=== PATIENT | female | born 1955 | race Caucasian/White ===

== ENCOUNTER → 2019-11-14 17:15 | Outpatient (BNVA) | payer BC, SELFPAY | PROVIDERS: Visit Provider Nurse Practitioner Family | DX: E11.9 Type 2 diabetes mellitus without complications (principal); E55.9 Vitamin D deficiency, unspecified; G47.00 Insomnia, unspecified; K21.9 Gastro-esophageal reflux disease without esophagitis; I10 Essential (primary) hypertension | CPT/HCPCS: 80053; 80061; 82306; 83036; 85025 ==

== ENCOUNTER → 2020-05-28 16:00 | Outpatient (BNVA) | payer BC, SELFPAY | PROVIDERS: Visit Provider Nurse Practitioner Family | DX: I10 Essential (primary) hypertension (principal); E11.9 Type 2 diabetes mellitus without complications; E55.9 Vitamin D deficiency, unspecified; J01.90 Acute sinusitis, unspecified; K21.9 Gastro-esophageal reflux disease without esophagitis | CPT/HCPCS: 80053; 80061; 82043; 82306; 83036; 84443; 85025 ==

== ENCOUNTER → 2020-07-09 14:45 | Outpatient (BNVA) | payer BC, SELFPAY | PROVIDERS: Visit Provider Nurse Practitioner Family | DX: Z20.828 Contact with and (suspected) exposure to other viral communicable diseases (principal); J06.9 Acute upper respiratory infection, unspecified | CPT/HCPCS: 87635 ==

== ENCOUNTER 2020-07-13 13:40 | Inpatient (IN) | payer BC, SELFPAY ==
[2020-07-13] VITALS (10 sets, daily range): BP systolic 127–147; BP diastolic 71–92; PULSE 98–110; RESP 18–30; TEMP 36.8–37.4; O2SAT 92–95; BMI 41.1
--- NOTE | 2020-07-13 13:41 | ECG_ITS ---
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 Measurements Intervals Arley Rate: 97 P: 29 ND: 150 QRS: 28 QRSD: 90 T: 28 QT: 316 QTc: 403 Interpretive Statements SINUS RHYTHM No previous ECG available for comparison Electronically Signed On 07-14-2020 20:29:42 CDT by Antony Rodriguez M.D. [id number]
--- NOTE | 2020-07-13 13:41 | XRR_ITS ---
PROCEDURE INFORMATION: Exam: XR Chest, 1 View Exam date and time: 07/13/2020 1:43 PM Age: 64 years old Clinical indication: Shortness of breath; Additional info: SOB TECHNIQUE: Imaging protocol: XR of the chest Views: 1 view. COMPARISON: No relevant prior studies available. FINDINGS: Lungs: Bilateral patchy ground-glass interstitial lung disease, left lung more involved than right, consistent with active pneumonitis. Minimal discoid atelectasis. Pleural space: Unremarkable. No pleural effusion. No pneumothorax. Heart/Mediastinum: Mild cardiomegaly with arteriosclerosis. Bones/joints: Unremarkable for age. Other findings: Obesity. XR/XR chest 1V portable [id number] IMPRESSION: Findings consistent with bilateral interstitial pneumonitis, left lung more involved than right.
[2020-07-13 14:16] LABS: Hematocrit 42.5 % (37.0-47.0); Hemoglobin 13.7 g/dL (11.5-15.3); Lymphocytes # 0.6 10^3/uL (0.8-4.8); Lymphocytes % 15.4 %; Mean Corpuscular HGB Conc 32.2 g/dL (30.0-36.0); Mean Platelet Volume 11.8 fL (7.4-10.4); Monocytes # 0.3 10^3/uL (0.2-0.9); Monocytes % 8.5 %; Neutrophils # 2.95 10^3/uL (1.8-7.7); Neutrophils % 75.8 %; Nucleated Red Blood Cells % 0 %; Platelet Count 163 10^3/cmm (130-400); Red Blood Count 4.72 10^6/uL (4.1-5.3); Red Cell Distribution Width 12.9 % (12.1-15.1); White Blood Count 3.9 10^3/uL (4.0-10.0)
--- NOTE | 2020-07-13 14:35 | W.ED.SOB ---
HPI - SOB/Dyspnea General: Chief Complaint: Shortness of Breath/Dyspnea Stated Complaint: COVID; SOB Time Seen by Provider: 07/13/20 13:41 Source: patient and EMS Mode of arrival: EMS Limitations: no limitations History of Present Illness: HPI Narrative: Maria G is a 64-year-old female who recently tested positive for COVID. She states that her cough is worse and she got much more short of breath today. EMS states that with exertion her pulse ox would drop into the 60s. When she came in with EMS she was on 6 L and since resting we have been able to turn her down to 3 L. She states that her dyspnea is much worse with exertion. Denies any vomiting or chest pain. Associated symptoms: Reports fever(s); Deny abdominal pain, chest pain, nausea or vomiting Review of Systems Const: Reports: fever(s) Eyes: Denies: blurry vision or eye discomfort ENMT: Denies: throat pain or dental pain Card: Denies: chest pain Resp: Reports: dyspnea and productive cough GI: Denies: abdominal pain, nausea, vomiting or diarrhea : Denies: dysuria Musc: Denies: neck pain or back pain Skin/Breast: Denies: rash Neuro: Denies: headache(s) Psych: Denies: depression Braxton/Lymph: Denies: easy bruising All/Imm: Denies: urticaria PFSH ED PFSH: Medical History DDD (degenerative disc disease) Eating disorder Hypertension Insomnia Type 2 diabetes mellitus Vitamin D deficiency Surgical History History of cholecystectomy Family History Father Diabetes Mother CAD (coronary artery disease) Diabetes Social History Smoking and tobacco status: former smoker Alcohol intake: current Alcohol intake frequency: holidays/special occasions only Lives independently: Yes Household members: spouse Marital status: Physical Exam Const: COMMON NORMALS: no acute distress, patient oriented x3 and healthy appearing HENMT: COMMON NORMALS: normocephalic and atraumatic HEAD & SCALP: normocephalic and atraumatic Eye: COMMON NORMALS: Equal, round and reactive pupils present and EOMs intact bilaterally PUPIL: Yes Equal, round and reactive pupils present Neck/C-Spine: COMMON NORMALS: full ROM and supple Chest: COMMONS NORMALS: normal inspection of the chest and normal palpation of entire chest wall Resp: COMMON NORMALS: normal respiratory effort, No retractions, No use of accessory muscles and clear to auscultation bilaterally AUSCULTATION: clear to auscultation bilaterally and rales Cardio: COMMON NORMALS: regular rate, regular rhythm and No murmurs present (Cardio) RATE: regular rate RHYTHM: regular rhythm GI: COMMON NORMALS: Normal to inspection, nondistended, normoactive bowel sounds present, Soft to palpation, non-tender and no masses PALPATION: Yes Soft to palpation Extremity: COMMON NORMALS: normal to inspection and full ROM Neuro: COMMON NORMALS: patient oriented x3, moves all extremities and no focal motor deficits Psych: COMMON NORMALS: mental status grossly normal, Normal thought process present and cooperative THOUGHT PROCESS: Normal thought process present Skin: COMMON NORMALS: no rashes or lesions noted and no wounds GENERAL SKIN EXAM: no rashes or lesions noted Course Vital Signs: Vital signs: Vital Signs Temperature 98.3 F 07/13/20 14:06 Pulse Rate 102 H 07/13/20 16:00 Respiratory Rate 30 H 07/13/20 16:00 Blood Pressure 127/71 07/13/20 16:00 Pulse Oximetry 94 07/13/20 16:00 MDM - SOB/Dyspnea MDM Narrative: Medical decision making narrative: Patient presents with COVID pneumonia. Patient is requiring 3 to 4 L of oxygen here. Patient has been stable on the oxygen. Patient started on steroids. I spoke to hospitalist and will admit to the viral ICU. Lab Data: Labs: Lab Results 07/13/20 07/13/20 07/13/20 Range/Units 13:50 13:50 13:50 WBC 3.9 L (4.0-10.0) 10^3/ uL RBC 4.72 (4.1-5.3) 10^6/u L Hgb 13.7 (11.5-15.3) g/dL Hct 42.5 (37.0-47.0) % MCV 90.0 (81-99) fL MCH 29.0 (28.0-34.0) pg MCHC 32.2 (30.0-36.0) g/dL RDW 12.9 (12.1-15.1) % Plt Count 163 (130-400) 10^3/c mm MPV 11.8 H (7.4-10.4) fL Neut % (Auto) 75.8 % Lymph % (Auto) 15.4 % [place] % (Auto) 8.5 % Eos % (Auto) 0.0 % Baso % (Auto) 0.0 % Neut # (Auto) 2.95 (1.8-7.7) 10^3/u L Lymph # (Auto) 0.6 L (0.8-4.8) 10^3/u L [place] # (Auto) 0.3 (0.2-0.9) 10^3/u L Eos # (Auto) 0.0 (0.0-0.8) 10^3/u L Baso # (Auto) 0.0 (0.0-0.1) 10^3/u L Nucleated RBC % (a uto) 0 % Nucleated RBCs # 0.0 /100WBC Fibrinogen 588 H (174-498) mg/dL Sodium 131 L (136-145) mmol/L Potassium 4.2 (3.5-5.1) mmol/L Chloride 95 L (98-107) mmol/L Carbon Dioxide 26 (22-29) mmol/L Anion Gap 14.2 (5-19) BUN 8 (8-23) mg/dL Creatinine 0.5 (0.5-0.9) mg/dL GFR Calculation 124.6 (90-130) mL/min Glucose 136 H (65-115) mg/dL POC Glucose (70-110) mg/dL Calculated Osmolal ity 272 L (285-295) mOsm/k g Lactic Acid (0.5-2.2) mmol/L Calcium 8.6 (8.5-10.5) mg/dL Ferritin 460 H (15-150) ng/mL Total Bilirubin 0.4 (0.15-1.2) mg/dL AST 32 (0-32) U/L ALT 29 (0-33) U/L Alkaline Phosphata se 107 H (35-105) IU/L C-Reactive Protein 32.1 H (0.0-4.9) mg/L NT-Pro-B Natriuret Pep 11 (0-125) pg/mL Total Protein 7.0 (6.6-8.7) g/dL Albumin 3.9 (3.5-5.2) g/dL Globulin 3.1 (1.3-4.6) g/dL 07/13/20 07/13/20 Range/Units 13:50 14:54 WBC (4.0-10.0) 10^3/ uL RBC (4.1-5.3) 10^6/u L Hgb (11.5-15.3) g/dL Hct (37.0-47.0) % MCV (81-99) fL MCH (28.0-34.0) pg MCHC (30.0-36.0) g/dL RDW (12.1-15.1) % Plt Count (130-400) 10^3/c mm MPV (7.4-10.4) fL Neut % (Auto) % Lymph % (Auto) % [place] % (Auto) % Eos % (Auto) % Baso % (Auto) % Neut # (Auto) (1.8-7.7) 10^3/u L Lymph # (Auto) (0.8-4.8) 10^3/u L [place] # (Auto) (0.2-0.9) 10^3/u L Eos # (Auto) (0.0-0.8) 10^3/u L Baso # (Auto) (0.0-0.1) 10^3/u L Nucleated RBC % (a uto) % Nucleated RBCs # /100WBC Fibrinogen (174-498) mg/dL Sodium (136-145) mmol/L Potassium (3.5-5.1) mmol/L Chloride (98-107) mmol/L Carbon Dioxide (22-29) mmol/L Anion Gap (5-19) BUN (8-23) mg/dL Creatinine (0.5-0.9) mg/dL GFR Calculation (90-130) mL/min Glucose (65-115) mg/dL POC Glucose 127 (70-110) mg/dL Calculated Osmolal ity (285-295) mOsm/k g Lactic Acid 0.9 (0.5-2.2) mmol/L Calcium (8.5-10.5) mg/dL Ferritin (15-150) ng/mL Total Bilirubin (0.15-1.2) mg/dL AST (0-32) U/L ALT (0-33) U/L Alkaline Phosphata se (35-105) IU/L C-Reactive Protein (0.0-4.9) mg/L NT-Pro-B Natriuret Pep (0-125) pg/mL Total Protein (6.6-8.7) g/dL Albumin (3.5-5.2) g/dL Globulin (1.3-4.6) g/dL EKG Data^: EKG 1: Attestation: I personally reviewed and interpreted this EKG as follows: EKG Interpretation Date: 07/13/20 EKG interpretation time: 14:06 Interpretation: nsr hr [address] or t wave abnormalities qrs 90 qtc 371 Discharge Plan Discharge Patient Disposition: Admitted As Inpatient Admit Provider: Eduardo West Clinical Impression: Pneumonia due to COVID-19 virus Condition: Stable Coding Level of Care Code ED Keno Writer/Runner for Chg Fwd Exam Comprehensive
[2020-07-13 14:38] LABS: Lactic Sepsis W/Reflex 0.9 mmol/L (0.5-2.2)
[2020-07-13 14:47] LABS: Alanine Aminotransferase 29 U/L (0-33); Albumin Level 3.9 g/dL (3.5-5.2); Alkaline Phosphatase 107 IU/L (35-105); Anion Gap 14.2 (5-19); Aspartate Amino Transferase 32 U/L (0-32); Blood Urea Nitrogen 8 mg/dL (8-23); C Reactive Protein 32.1 mg/L (0.0-4.9); Calcium 8.6 mg/dL (8.5-10.5); Carbon Dioxide 26 mmol/L (22-29); Chloride 95 mmol/L (98-107); Ferritin 460 ng/mL (15-150); Globulin 3.1 g/dL (1.3-4.6); Glomerular Filtration Rate 124.6 mL/min (90-130); Glucose 136 mg/dL (65-115); NT Pro B Type Natriuretic Pept 11 pg/mL (0-125); Osmolality Calculated 272 mOsm/kg (285-295); Potassium 4.2 mmol/L (3.5-5.1); Sodium 131 mmol/L (136-145); Total Bilirubin 0.4 mg/dL (0.15-1.2)
[2020-07-13] MEDS: dexamethasone 10 mg/mL INJ IVP (14:58)
[2020-07-13 15:04] LABS: Glucose Point of Care 127 mg/dL (70-110)
[2020-07-13 15:28] LABS: Fibrinogen 588 mg/dL (174-498)
[2020-07-13 17:32] LABS: D Dimer 0.84 ug/mIFEU (0-0.59)
--- NOTE | 2020-07-13 17:41 | CTR_ITS ---
PROCEDURE INFORMATION: Exam: CT Angiography Chest With Contrast Exam date and time: 07/13/2020 5:56 PM Age: 64 years old Clinical indication: Abnormal findings; Abnormal diagnostic tests; Elevated d-dimer; Patient HX: Covid+ w elev d-dimer; Additional info: Pe/covid TECHNIQUE: Imaging protocol: Computed tomographic angiography of the chest with intravenous contrast. 3D rendering (Not supervised by radiologist): MIP and/or 3D reconstructed images were created by the technologist. Radiation optimization: All CT scans at this facility use at least one of these dose optimization techniques: automated exposure control; mA and/or kV adjustment per patient size (includes targeted exams where dose is matched to clinical indication); or iterative reconstruction. Contrast material: OMNI 350; Contrast volume: 95 ml; Contrast route: INTRAVENOUS (IV); COMPARISON: CR (CHEST, ) 07/13/2020 2:17 PM RADIATION DOSE METRICS: Total DLP (mGy-cm): 565.15 FINDINGS: Pulmonary arteries: Suboptimal pulmonary arterial contrast enhancement. Examination is limited for the assessment of pulmonary embolism/pulmonary arterial thrombus. Grossly no visible central pulmonary embolism/pulmonary arterial thrombus. Aorta: The thoracic aorta is nonaneurysmal. No visible intimal flap or dissection. Lungs: Centrilobular emphysema. Bilateral ground-glass interstitial lung disease consistent with active interstitial pneumonitis. Small round focus consolidated alveolar airspace disease inferior segment lingula with parenchymal tail consistent with either round atelectasis or round pneumonia. Pleural space: Unremarkable. No pneumothorax. No pleural effusion. Heart: Coronary artery disease. Cardiac size upper limits of normal. No visible pericardial effusion. Lymph nodes: Few marginally prominent mediastinal and hilar lymph nodes most likely reactive. Liver: Diffuse fatty infiltration liver. Hepatomegaly. Gallbladder and bile ducts: Status post cholecystectomy. Spleen: Splenomegaly. Bones/joints: No visible active osseous pathology. Age-appropriate degenerative disease of the spine. Soft tissues: Obesity. Increased quantum mottle artifact which degrades image quality in detail. CT/CT angio chest PE protcl [id number] IMPRESSION: 1. Suboptimal pulmonary arterial contrast enhancement. Examination is limited for the assessment of pulmonary embolism/pulmonary arterial thrombus. Grossly no visible central pulmonary embolism/pulmonary arterial thrombus. 2. Bilateral ground-glass interstitial lung disease consistent with active interstitial pneumonitis. 3. Small round focus consolidated alveolar airspace disease inferior segment lingula with parenchymal tail consistent with either round atelectasis or round pneumonia. 4. Centrilobular emphysema. 5. Coronary artery disease. 6. Few marginally prominent mediastinal and hilar lymph nodes most likely reactive. 7. Diffuse fatty infiltration of the liver with hepatomegaly. 8. Splenomegaly. Radiation Dose CTDIVOL = (mGy): DLP = 565.15 (mGy-cm)
--- NOTE | 2020-07-13 18:05 | P.HP_ITS ---
Providers/Chief Complaint Admitting Physician: Eduardo West MD Chief Complaint: COVID; SOB History of Present Illness Maria G Khan is a 64 year old female with past medical history of hypertension, hyperlipidemia, morbid obesity, type 2 diabetes mellitus, vitamin D deficiency comes in today because of symptoms from COVID-19. Patient states she was exposed to known COVID-19 around 10 days ago and was tested positive for 7 days ago. She has had symptoms of fever, myalgia, loss of sense of smell, loss of sense of taste, headache, diarrhea, nausea for last 10 days along with difficulty in breathing getting worse since last night. At home her oxygen saturation was around 85% so she decided to come to the ER. In the ER she was saturating around 82% so was put on oxygen supplementation to keep her saturation over 90%. On my examination patient is sitting at the side of her bed requiring 4 L to keep her saturation at 92%. She seems comfortable. Her blood work in the ER showed a white count of 3.9, fibrinogen of 588, d-dimer of 0.8, sodium of 131, chloride of 95, ferritin of 460, AST/ALT of 32/29, alkaline phosphatase of 107, CRP of 3-2.1 and rapid antigen was positive. Review of Systems General: Reports: 10 or more systems reviewed and unremarkable except in HPI and below Const: Reports: fever(s) and chills; Denies: body aches, change in appetite, change in weight, malaise, night sweats, diaphoresis, change in sleep pattern, daytime sleepiness or snoring Eyes: Reports: change in vision; Denies: blurry vision, photophobia, eye discomfort or eye discharge ENMT: Denies: throat pain, enlarged tonsils, hoarseness, mouth pain, oral sores, dry mouth, tinnitus, nasal congestion or post nasal drip Card: Denies: chest pain, palpitations, irregular heart rhythm, edema, swelling of feet/ankles, lightheadedness, syncope, pre-syncope, dyspnea on exertion, orthopnea, leg pain with exertion or acrocyanosis Resp: Reports: dyspnea, productive cough and wheezing; Denies: non-productive cough, stridor, pain on inspiration, change in phlegm color, hemoptysis or chest congestion GI: Reports: abdominal pain and nausea; Denies: vomiting, hematemesis, coffee ground emesis, dysphagia, heartburn, diarrhea, constipation, bloating, GI cramping, change in bowel habits, pain on defecation, hematochezia or melena : Denies: flank pain, dysuria, urinary frequency, urinary urgency, urinary hesitancy, nocturia or hematuria Musc: Reports: neck pain; Denies: back pain, extremity pain, joint pain, joint swelling, joint redness, joint stiffness or limited range of motion Neuro: Reports: headache(s); Denies: numbness in extremities, weakness in extremities, sensory changes, lack of coordination, difficulty walking, frequent falls, dizziness, vertigo, confusion, Slurred speech present, difficulty communicating thoughts or seizure- like activity Psych: Denies: anxiety, depression, mood swings, panic attacks, hopelessness or irritability Endo: Denies: polyuria, polydipsia, tired all the time, cold intolerance, excessive sweating, flushing or heat intolerance Braxton/Lymph: Denies: easy bruising or easy bleeding All/Imm: Denies: tongue swelling, facial swelling or acute wheezing Medications/Allergies Home Medications Medication Instructions Recorded Confirmed Last Taken Type albuterol sulfate 90 mcg/actuation 2 puff INHALATION QID PRN #18 gm 05/28/20 07/13/20 07/13/20 Rx aerosol inhaler amitriptyline 10 mg tablet 30 mg PO .AT BEDTIME #270 tab 05/28/20 07/13/20 07/12/20 Rx bupropion HCl 150 mg 24 hr tablet, 150 mg PO QAM #90 tab 05/28/20 07/13/20 07/12/20 Rx extended release celecoxib 200 mg capsule 200 mg PO DAILY #90 cap 05/28/20 07/13/20 07/13/20 Rx cyclobenzaprine 10 mg tablet 10 mg PO TID PRN #270 tab 05/28/20 07/13/20 07/12/20 Rx ergocalciferol (vitamin D2) 1,250 50,000 unit PO .twice weekly #24 05/28/20 07/13/20 07/10/20 Rx mcg (50,000 unit) capsule cap glyburide 2.5 mg tablet 2.5 mg PO DAILY #90 tab 05/28/20 07/13/20 07/13/20 Rx lisinopril 10 mg tablet 10 mg PO DAILY #90 tab 05/28/20 07/13/20 07/12/20 Rx metformin 500 mg tablet 500 mg PO TID #180 tab 05/28/20 07/13/20 07/13/20 Rx omeprazole 40 mg capsule,delayed 40 mg PO DAILY #90 each 05/28/20 07/13/20 07/12/20 Rx release dapagliflozin 10 mg tablet 10 mg PO QAM #90 tab 05/29/20 07/13/20 07/13/20 Rx rosuvastatin 10 mg tablet 10 mg PO DAILY #30 tab 06/27/20 07/13/20 07/13/20 Rx vitamin B complex 1 tab PO DAILY 07/13/20 07/13/20 07/12/20 History Allergies Allergy/AdvReac Type Severity Reaction Status Date / Time clarithromycin Allergy ADR-Diarrhe Verified 07/09/20 13:15 a codeine Allergy ALGY-Hives Verified 07/09/20 13:15 fentanyl [From Duragesic] Allergy ALGY-Hives Verified 07/09/20 13:15 levofloxacin [From Levaquin] Allergy Unknown Verified 07/13/20 16:32 morphine Allergy ALGY-Difficulty Verified 07/09/20 13:15 Breathing paroxetine [From Paxil] Allergy Unknown Verified 07/09/20 13:15 Penicillins Allergy ALGY-Anaphy Verified 07/09/20 13:15 laxis sertraline [From Zoloft] Allergy Unknown Verified 07/09/20 13:15 tramadol Allergy Unknown Verified 07/09/20 13:15 venlafaxine [From Effexor] Allergy Unknown Verified 07/09/20 13:15 PFSH Acute PFSH: Medical History DDD (degenerative disc disease) Eating disorder Hypertension Insomnia Type 2 diabetes mellitus Vitamin D deficiency Surgical History History of cholecystectomy Family History Father Diabetes Mother CAD (coronary artery disease) Diabetes Social History Smoking and tobacco status: former smoker Alcohol intake: current Alcohol intake frequency: holidays/special occasions only Lives independently: Yes Household members: spouse Marital status: Vitals/I&O/Wt Last Vital Signs Temp 98.3 F 07/13/20 14:06 Pulse 106 H 07/13/20 17:59 Resp 28 H 07/13/20 17:59 BP 147/86 07/13/20 17:59 Pulse Ox 92 07/13/20 17:59 Weight last 48 hrs Weight 105.233 kg Physical Exam 2 Narrative: EXAM NARRATIVE: General: No acute distress, AO x3, morbid obesity, requiring 4 L to keep saturation 90%. HEENT: PERRLA, pupils bilaterally equal and reactive Chest: Bilateral bronchial breath sounds, bilateral rhonchi, good equal air entry all over the lung parker CVS: S1-S2 regular, no murmurs, no tachycardia, no gallops, no rubs Abdomen: Soft, nontender, no organomegaly, bowel sounds present Neuro: No focal deficits, no facial deformity, AO x3, power 5/5 in all limbs Data : 07/13/20 13:50 07/13/20 13:50 A&P Assessment and plan (1) Hypoxia: Status: Acute (2) Pneumonia due to COVID-19 virus: Status: Acute (3) Hypertension: Status: Acute Qualifiers: Hypertension type: essential hypertension Qualified Code(s): I10 - Essential (primary) hypertension (4) Type 2 diabetes mellitus: Status: Acute Qualifiers: 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 Start on antiviral treatment with Remdesivir. She would most likely require a 5-day course. Start on dexamethasone 6 mg IV daily. Advair, Spiriva. Vitamin C, zinc, Tessalon Perles. D-dimer is elevated. Will do CTA chest PE protocol to rule out pulmonary embolism. For now start her on Eliquis 5 mg twice daily. Will help for how long patient would need anticoagulation. Monitor inflammatory markers like d-dimer, fibrinogen, CRP, LDH, ferritin. Check proBNP, procalcitonin, urine Legionella, MRSA swab, bacterial antigen, sputum culture, CPK, flu swab. For now start patient on Levaquin 500 mg oral daily. Chances of bacterial pneumonia are low for now. Hyponatremia: Most likely because of dehydration. Normal saline at 75 cc/h. We will continue to monitor sodium daily. For now patient does not have any signs or symptoms of hyponatremia. Hypertension: Goal blood pressure less than 140/90 mmHg. Continue patient on home dose of antihypertensive with lisinopril 10 mg. Continue to monitor. Type 2 diabetes mellitus: Stop oral hypoglycemics. Start patient on insulin sliding scale at moderate dose. Check HbA1c, lipid panel, TSH, iron panel. Continue chronic medication like amitriptyline, bupropion, Flexeril as needed. Goals of care: Patient is not aware and would like to think further. For now she would want to be full code but would like to revisit the goal status tomorrow. Full code. Carb consistent cardiac diet. Dwight will also help with DVT prophylaxis. Attestations Medical Necessity Statement*: Admit to microbiology for more than 2 midnights for acute hypoxic respiratory failure because of COVID-19 pneumonia Time Spent in Patient Care: Greater than 35 minutes (>than 50% of time spent in counselling and/or direct pt care on unit) . Coding Level of Care Code Acute Parking Lot Spotter for [facility] Fwd Diagnoses Hypoxia R09.02 Pneumonia due to COVID-19 virus U07.1; J12.89 Hypertension I10 Hypertension type: essential hypertension Type 2 diabetes mellitus E11.9 Diabetes mellitus computer terminal operator insulin use: without computer terminal operator use Diabetes mellitus complication status: without complication
[2020-07-13] MEDS: iohexol 350 mg/mL 100 mL Btl IV (18:24)
[2020-07-13] MEDS: benzonatate 100 mg Capsule PO (20:12)
[2020-07-13] MEDS: sodium chloride 0.9% 1,000 ML 75 ML IV (20:12)
[2020-07-13 20:30] LABS: Glucose Point of Care 272 mg/dL (70-110)
[2020-07-13 23:17] LABS: Influenza A by IFA Negative (Negative); Influenza B by IFA Negative (Negative)
[2020-07-13 23:19] LABS: Creatine Phosphokinase 36 U/L (26-192); Thyroid Stimulating Hormone 1.55 uIU/mL (0.27-4.20)
[2020-07-14] VITALS (17 sets, daily range): BP systolic 103–160; BP diastolic 72–93; PULSE 81–102; RESP 17–24; TEMP 36.6–36.9; O2SAT 90–94
[2020-07-14 01:02] LABS: Procalcitonin 0.06 ng/mL (0-0.5)
[2020-07-14 01:13] LABS: Iron 38 ug/dL (37-145); Percent Saturation 15.4 % (20-50); Total Iron Binding Capacity 246 mcg/dl; Unsaturated Iron Binding 208 ug/dL (112-347)
--- NOTE | 2020-07-14 01:51 | PC.NURSE ---
DECREASED 02 Upon admission assessment, patient oxygen saturation at 89% on 6L. Nurse and respiratory discussed high flow nasal cannula if patients oxygen saturation did not increase at rest. Patient up to bedside commode with a brief 5 second decrease to 83% on 6L. Once patient on bedside commode, patient oxygen increased to 86% again. Respiratory put patient on high flow nasal cannula at 8L and patient currently at 93% while sleeping.
[2020-07-14] MEDS: albuterol 8 gm MDI 2 PUFF INHALATION ×3 (02:52→20:45)
--- NOTE | 2020-07-14 04:22 | PC.NURSE ---
MORNING LABS Nurse rani patients morning labs via venipuncture. Patient denied any pain or needs before nurse left room.
[2020-07-14] MEDS: buPROPion XL (24 HR) 150 mg Tablet PO (05:25)
--- NOTE | 2020-07-14 05:38 | PC.NURSE ---
SHIFT SUMMARY Patient began this shift on 6L nasal cannula with a consistent oxygen saturation of 86% at rest. Upon exertion to bedside commode, patients oxygen decreased briefly to 83% and increased once patient sat down. Patient was then put on high flow nasal cannula at 8L with a consistent saturation between 88-89%. Respiratory turned patient up to 12L and patient has consistently stayed between 90-93%. Sinus tachycardia on exertion and sinus rhythm at rest. Patient has been afebrile. Urine output of 1,000 mL. Normal saline running at 75 mL/hour. Patient has denied any pain or discomfort this shift.
--- NOTE | 2020-07-14 06:00 | XRR_ITS ---
PROCEDURE INFORMATION: Exam: XR Chest, 1 View Exam date and time: 07/14/2020 5:28 AM Age: 64 years old Clinical indication: Dyspnea; Additional info: Covid TECHNIQUE: Imaging protocol: XR of the chest Views: 1 view. COMPARISON: CR (CHEST, ) 07/13/2020 2:17 PM FINDINGS: Lungs: There is worsening consolidation seen within the left lung base. Bilateral predominantly peripheral strandy and patchy opacities are seen. Pleural space: Unremarkable. No pleural effusion. No pneumothorax. Heart/Mediastinum: Unremarkable. No cardiomegaly. Bones/joints: Unremarkable. XR/XR chest 1V portable [id number] IMPRESSION: Bilateral strandy and patchy opacities are seen similar to that present in yesterday's examination. There is increasing is consolidation seen in the left lung base however.
[2020-07-14 06:24] LABS: Hematocrit 40.4 % (37.0-47.0); Hemoglobin 12.6 g/dL (11.5-15.3); Lymphocytes # 0.5 10^3/uL (0.8-4.8); Lymphocytes % 26.3 %; Mean Corpuscular HGB Conc 31.2 g/dL (30.0-36.0); Mean Corpuscular Hemoglobin 28.6 pg (28.0-34.0); Mean Corpuscular Volume 91.8 fL (81-99); Mean Platelet Volume 11.8 fL (7.4-10.4); Monocytes # 0.2 10^3/uL (0.2-0.9); Monocytes % 12.3 %; Neutrophils # 1.03 10^3/uL (1.8-7.7); Neutrophils % 60.2 %; Nucleated Red Blood Cells % 0 %; Platelet Count 162 10^3/cmm (130-400); Red Cell Distribution Width 12.9 % (12.1-15.1); White Blood Count 1.7 10^3/uL (4.0-10.0)
[2020-07-14 07:04] LABS: Alanine Aminotransferase 23 U/L (0-33); Albumin Level 3.7 g/dL (3.5-5.2); Alkaline Phosphatase 96 IU/L (35-105); Anion Gap 14.2 (5-19); Aspartate Amino Transferase 23 U/L (0-32); Blood Urea Nitrogen 8 mg/dL (8-23); Calcium 8.6 mg/dL (8.5-10.5); Carbon Dioxide 26 mmol/L (22-29); Chloride 99 mmol/L (98-107); Globulin 2.8 g/dL (1.3-4.6); Glomerular Filtration Rate 124.6 mL/min (90-130); Glucose 228 mg/dL (65-115); Osmolality Calculated 286 mOsm/kg (285-295); Potassium 4.2 mmol/L (3.5-5.1); Sodium 135 mmol/L (136-145); Total Bilirubin 0.2 mg/dL (0.15-1.2); Total Protein 6.5 g/dL (6.6-8.7)
[2020-07-14 07:38] LABS: Glucose Point of Care 172 mg/dL (70-110)
[2020-07-14 08:00] LABS: Fibrinogen 597 mg/dL (174-498)
[2020-07-14 08:02] LABS: D Dimer 0.84 ug/mIFEU (0-0.59)
[2020-07-14] MEDS: ascorbic acid 500 mg Tablet PO (08:24)
[2020-07-14] MEDS: zinc gluconate 50 mg Tablet PO (08:24)
[2020-07-14] MEDS: pantoprazole DR 40 mg Tablet PO (08:25)
[2020-07-14] MEDS: lisinopril 10 mg Tablet PO (08:25)
[2020-07-14] MEDS: atorvastatin 40 mg Tablet PO (08:25)
[2020-07-14] MEDS: benzonatate 100 mg Capsule PO ×3 (08:25→21:24)
[2020-07-14] MEDS: CELEcoxib 200 mg Capsule PO (08:26)
[2020-07-14 09:38] LABS: C Reactive Protein 31.3 mg/L (0.0-4.9); Chol HDL Ratio 2.58 mg/dL (0.0-4.40); Cholesterol 85 mg/dL (0-200); Creatine Phosphokinase 33 U/L (26-192); Ferritin 443 ng/mL (15-150); HDL Cholesterol 33 mg/dL (60-100); LDL Cholesterol Calculated 39 mg/dL (50-129); NT Pro B Type Natriuretic Pept 94 pg/mL (0-125); Triglycerides 67 mg/dL (0-150); VLDL Cholestrol Calculation 13 mg/dL (0-30)
[2020-07-14 09:39] LABS: Estmated Average Glucose 189; Hemoglobin A1C 8.2 % (4.0-6.0)
[2020-07-14] MEDS: dexamethasone 4 mg/mL INJ 6 MG IVP (11:10)
[2020-07-14] MEDS: levoFLOXacin 500 mg Tablet PO (11:11)
[2020-07-14 11:22] LABS: Glucose Point of Care 136 mg/dL (70-110)
--- NOTE | 2020-07-14 13:15 | P.PN_ITS ---
Subjective Subjective: Interval history: On examination patient states she is feeling a lot better. Her energy levels are good. Her appetite is good. She thinks she is breathing better as well. Though patient is requiring up to 10 L high flow nasal cannula oxygen supplementation to keep her saturation over 90%. Hemodynamically she has remained stable. Afebrile. We discussed in detail need of spirometry, flutter valve and to sleep in prone or semiprone position. Also discussed that unfortunately patient is having lymphopenia and neutropenia at present for which she needs to be on antibiotics as she is on steroids. She states she has had anaphylactic shock with penicillin but does not take Levaquin as apparently her mother of Levaquin toxicity. For now she has agreed to be on Levaquin while monitoring her kidney and liver numbers. She is okay for being on Levaquin for 5 days. Vitals/I&O/Wt Last Vital Signs Temp 98.5 F 07/14/20 04:21 Pulse 99 07/14/20 10:06 Resp 20 H 07/14/20 10:06 BP 118/90 07/14/20 10:06 Pulse Ox 93 07/14/20 10:06 07/13/20 07/14/20 07/14/20 22:59 06:59 14:59 Intake Total 500 / 500 500 / 1000 500 / 500 Output Total 1000 / 1000 Balance -500 / -500 500 / 0 500 / 500 Weight last 48 hrs Weight 110.223 kg Weight 105.233 kg Physical Exam Narrative: EXAM NARRATIVE: General: No acute distress, AO x3, morbid obesity, requiring 4 L to keep saturation 90%. HEENT: PERRLA, pupils bilaterally equal and reactive Chest: Bilateral bronchial breath sounds, bilateral rhonchi, good equal air entry all over the lung parker CVS: S1-S2 regular, no murmurs, no tachycardia, no gallops, no rubs Abdomen: Soft, nontender, no organomegaly, bowel sounds present Neuro: No focal deficits, no facial deformity, AO x3, power 5/5 in all limbs Data : 07/14/20 04:02 07/14/20 04:02 Micro: Microbiology 07/13/20 21:22 MRSA Culture - Final Nose 07/13/20 23:18 Blood Culture - Preliminary Blood SPECIMEN COLLECTED 07/13/20 22:00 Blood Culture - Preliminary Blood SPECIMEN COLLECTED A&P Assessment and plan (1) Hypoxia: Status: Acute (2) Pneumonia due to COVID-19 virus: Status: Acute (3) Neutropenia: Status: Acute (4) Type 2 diabetes mellitus: Status: Acute Qualifiers: Diabetes mellitus prison insulin use: without prison use Diabetes mellitus complication status: without complication Qualified Code(s): E11.9 - Type 2 diabetes mellitus without complications (5) Hypertension: Status: Acute Qualifiers: Hypertension type: essential hypertension Qualified Code(s): I10 - Essential (primary) hypertension (6) Hyponatremia: Status: Acute Additional A&P Information Acute hypoxia because of COVID 19 pneumonia: Patient is requiring more oxygen supplementation today morning. She is requiring up to 10 to 12 L. If she is requiring more than 12 L high flow nasal cannula we will switch her over to heated high flow. Start on antiviral treatment with Remdesivir. Day 2/5. Start on dexamethasone 6 mg IV daily. Advair, Spiriva. Vitamin C, zinc, Tessalon Perles. D-dimer is elevated. CTA PE negative for pulmonary embolism. For now start her on Eliquis 5 mg twice daily. Most likely will require a 2-week course as an outpatient. Monitor inflammatory markers like d-dimer, fibrinogen, CRP, LDH, ferritin. Inflammatory markers have remained stable. proBNP negative, pro-Francisco negative, TSH within normal limits, still awaiting urine Legionella, bacterial antigen. Flu negative, CPK negative. We will continue to follow blood culture, sputum culture. Neutropenia: Most likely because of viral illness. For now we will continue to monitor. As patient is having moderate to severe neutropenia and patient has been steroids will have to cover her for GI translocation specially for Pseudomonas. Patient is allergic to penicillin with anaphylaxis. She is agreed to give a trial of Levaquin. Levofloxacin 500 mg daily for 5 days. Continue to monitor ANC daily. Neutropenic precautions for now. Hyponatremia: Improving. Most likely because of dehydration. Patient is euvolemic we will stop IV fluids. Continue to monitor sodium levels daily. Hypertension: Goal blood pressure less than 140/90 mmHg. Continue patient on home dose of antihypertensive with lisinopril 10 mg. Continue to monitor. Type 2 diabetes mellitus: Stop oral hypoglycemics. Start patient on insulin sliding scale at moderate dose. Continue chronic medication like amitriptyline, bupropion, Flexeril as needed. Goals of care: Patient is not aware and would like to think further. For now she would want to be full code but would like to revisit the goal status tomorrow. Full code. Carb consistent cardiac diet. Dwight will also help with DVT prophylaxis. Attestations Medical Necessity Statement*: Acute hypoxia because of COVID-19 pneumonia, neutropenia, hyponatremia Time Spent in Patient Care: Greater than 35 minutes (>than 50% of time spent in counselling and/or direct pt care on unit) . Coding Level of Care Code Acute Playground Supervisor for [facility] Fwd Diagnoses Hypoxia R09.02 Pneumonia due to COVID-19 virus U07.1; J12.89 Neutropenia D70.9 Type 2 diabetes mellitus E11.9 Diabetes mellitus prison insulin use: without deboning team leader use Diabetes mellitus complication status: without complication Hypertension I10 Hypertension type: essential hypertension Hyponatremia E87.1
[2020-07-14 17:51] LABS: Glucose Point of Care 291 mg/dL (70-110)
[2020-07-14 18:56] LABS: Specific Gravity, Urine 1.005 (1.005-1.030); Urine Appearance Clear (CLEAR); Urine Color Yellow (Yellow); pH Urine 5 (5-7)
[2020-07-14 18:57] LABS: Bilirubin Urine Neg (Negative); Blood Urine Neg (Negative); Glucose Urine UA 2+ (Normal); Ketones Urine 1+ (Negative); Leukocyte Esterase Urine Negative (Negative); Nitrate Urine Negative (Negative); Protein Urine Neg (Negative); Urobilinogen Urine Norm (Negative)
[2020-07-14 18:58] LABS: Squamous Epithelial Cell Urine RARE /hpf (0-5)
[2020-07-14 18:59] LABS: Add Urine Culture? No
[2020-07-14 19:01] LABS: Potassium, Radom Urine 19 mmol/L; Urine Random Sodium 20 mmol/L
[2020-07-14 19:10] LABS: Urine Random Chloride 16 mmol/L
[2020-07-14 21:22] LABS: Glucose Point of Care 255 mg/dL (70-110)
[2020-07-15] VITALS (25 sets, daily range): BP systolic 82–136; BP diastolic 49–96; PULSE 74–99; RESP 16–24; TEMP 36.4–37.2; O2SAT 89–96
[2020-07-15 05:14] LABS: Hematocrit 38.8 % (37.0-47.0); Hemoglobin 12.4 g/dL (11.5-15.3); Lymphocytes # 0.8 10^3/uL (0.8-4.8); Mean Corpuscular Hemoglobin 29.3 pg (28.0-34.0); Mean Corpuscular Volume 91.7 fL (81-99); Mean Platelet Volume 11.3 fL (7.4-10.4); Monocytes # 0.4 10^3/uL (0.2-0.9); Monocytes % 13.2 %; Neutrophils # 2.06 10^3/uL (1.8-7.7); Neutrophils % 63.2 %; Nucleated Red Blood Cells % 0 %; Platelet Count 201 10^3/cmm (130-400); Red Blood Count 4.23 10^6/uL (4.1-5.3); White Blood Count 3.3 10^3/uL (4.0-10.0)
[2020-07-15 05:39] LABS: Alanine Aminotransferase 25 U/L (0-33); Albumin Level 3.7 g/dL (3.5-5.2); Alkaline Phosphatase 93 IU/L (35-105); Anion Gap 13.8 (5-19); Aspartate Amino Transferase 27 U/L (0-32); Blood Urea Nitrogen 14 mg/dL (8-23); Calcium 8.7 mg/dL (8.5-10.5); Carbon Dioxide 26 mmol/L (22-29); Chloride 100 mmol/L (98-107); Glucose 153 mg/dL (65-115); Osmolality Calculated 286 mOsm/kg (285-295); Potassium 3.8 mmol/L (3.5-5.1); Sodium 136 mmol/L (136-145); Total Bilirubin 0.4 mg/dL (0.15-1.2); Total Protein 6.7 g/dL (6.6-8.7)
[2020-07-15 05:45] LABS: C Reactive Protein 15.9 mg/L (0.0-4.9); Creatine Phosphokinase 28 U/L (26-192); Ferritin 438 ng/mL (15-150); NT Pro B Type Natriuretic Pept 79 pg/mL (0-125)
[2020-07-15] MEDS: buPROPion XL (24 HR) 150 mg Tablet PO (05:56)
[2020-07-15 07:44] LABS: Glucose Point of Care 123 mg/dL (70-110)
[2020-07-15] MEDS: levoFLOXacin 500 mg Tablet PO (08:22)
[2020-07-15] MEDS: lisinopril 10 mg Tablet PO (08:22)
[2020-07-15] MEDS: ascorbic acid 500 mg Tablet PO (08:22)
[2020-07-15] MEDS: benzonatate 100 mg Capsule PO (08:22)
[2020-07-15] MEDS: CELEcoxib 200 mg Capsule PO (08:22)
[2020-07-15] MEDS: zinc gluconate 50 mg Tablet PO (08:22)
[2020-07-15] MEDS: pantoprazole DR 40 mg Tablet PO (08:22)
[2020-07-15] MEDS: atorvastatin 40 mg Tablet PO (08:22)
--- NOTE | 2020-07-15 08:33 | PC.RESP ---
PATIENT DOES NOT HAVE A QUALIFYING HX OF LUNG DISEASE AND DOES NOT QUALIFY FOR PULMONARY REHAB AT THIS TIME.
[2020-07-15] MEDS: dexamethasone 4 mg/mL INJ 6 MG IVP (10:09)
[2020-07-15 12:01] LABS: Glucose Point of Care 127 mg/dL (70-110)
--- NOTE | 2020-07-15 15:28 | PM.PN ---
Subjective Subjective: Interval history: Hemodynamically stable, afebrile, currently requiring 10 L high flow nasal cannula. Downtrending inflammatory markers, improved white count from 1.7->3.3. On day 3 of Remdesevir. Reports feeling much better today, has been ambulating in the hallway at least twice so far, encouraged by decreasing oxygen requirement, reports being able to take deeper breaths, persistent dry cough. Quite motivated to use incentive spirometry. Medications: Reviewed: Yes Medication Review Details: Active Medications Generic Name Dose Route Start Last Admin Trade Name Freq PRN Reason Stop Dose Admin Acetaminophen 650 mg 07/13/20 18:36 Tylenol PO Q6H PRN Mild/Mod Pain Or Temp >/= 101 Albuterol Sulfate 2 puff 07/13/20 23:57 07/14/20 20:45 Ventolin INHALATION 2 puff Q4H.RESPIRATORY P RN Administration SHORTNESS OF ANSELMO TH Amitriptyline HCl 30 mg 07/13/20 18:36 Elavil PO .AT BEDTIME MARIANA Ascorbic Acid 500 mg 07/14/20 09:00 07/15/20 08:22 Vitamin C PO 500 mg DAILY MARIANA Administration Atorvastatin Calci um 40 mg 07/14/20 09:00 07/15/20 08:22 Lipitor PO 40 mg DAILY MARIANA Administration Benzonatate 100 mg 07/13/20 21:00 07/15/20 14:03 Tessalon Pearls PO Not Given TID MARIANA Bisacodyl 10 mg 07/13/20 18:36 Dulcolax PO DAILY PRN CONSTIPATION Bupropion HCl 150 mg 07/14/20 06:00 07/15/20 05:56 Wellbutrin Xl (2 4 Hr) PO 150 mg QAM MARIANA Administration Celecoxib 200 mg 07/14/20 09:00 07/15/20 08:22 Celebrex PO 200 mg DAILY MARIANA Administration Cyclobenzaprine HC l 10 mg 07/13/20 18:36 Flexeril PO TID PRN muscle spasm Dexamethasone 6 mg 07/14/20 10:00 07/15/20 10:09 Decadron IVP 6 mg Q24H MARIANA Administration Dextrose 25 ml 07/13/20 18:36 D50w IVP ONCE PRN hypoglycemia prot ocol Protocol Dextrose 50 ml 07/13/20 18:36 D50w IVP PRN PRN hypoglycemia prot ocol Protocol Glucagon 1 mg 07/13/20 18:36 Glucagen IM ONCE PRN Adult Acute Hypog lycemia Prot. Protocol remdesivir (EUA) 1 00 mg/ 100 mls @ 100 mls /hr 07/14/20 17:30 07/15/20 06:54 Sodium Chloride IV 07/17/20 18:29 Infused Q24H MARIANA Infusion Dextrose 500 mls @ 100 mls /hr 07/13/20 18:36 D5w IV ONCE PRN Adult Acute Hypog lycemia Prot Protocol Insulin Aspart 0 unit 07/13/20 18:36 07/15/20 11:44 Novolog SUBCUT Not Given WM&BEDTIME MARIANA Protocol Lactulose 10 gm 07/13/20 18:36 Constulose PO DAILY PRN CONSTIPA Lanolin 1 applic 07/15/20 14:52 Lanolin Oint TOPICAL PRN PRN DRYNESS Levofloxacin 500 mg 07/14/20 10:15 07/15/20 08:22 Levaquin PO 07/18/20 09:01 500 mg DAILY MARIANA Administration Protocol Lisinopril 10 mg 07/14/20 09:00 07/15/20 08:22 Prinivil PO 10 mg DAILY MARIANA Administration Non-Formulary Medi cation 1 tab 07/14/20 09:00 07/15/20 07:32 Vitamin B Comple x PO Not Given DAILY MARIANA Ondansetron HCl 4 mg 07/13/20 18:36 Zofran IVP Q8H PRN vomiting, or N/V if npo Pantoprazole Sodiu m 40 mg 07/14/20 09:00 07/15/20 08:22 Protonix PO 40 mg DAILY MARIANA Administration Fluticasone/Salmet delfin 1 puff 07/13/20 20:00 07/15/20 09:00 Advair Diskus 25 0-50 INHALATION 1 puff BID.RESPIRATORY S CH Administration Tiotropium [place] 18 mcg 07/14/20 08:00 07/15/20 09:00 Spiriva INHALATION 1 puff DAILY.RESPIRATORY MARIANA Administration Zinc Gluconate 50 mg 07/14/20 09:00 07/15/20 08:22 Zinc Gluconate PO 50 mg DAILY MARIANA Administration clarithromycin Allergy (Verified 07/09/20 13:15) ADR-Diarrhea codeine Allergy (Verified 07/09/20 13:15) ALGY-Hives fentanyl [From Duragesic] Allergy (Verified 07/09/20 13:15) ALGY-Hives levofloxacin [From Levaquin] Allergy (Verified 07/13/20 16:32) Unknown morphine Allergy (Verified 07/09/20 13:15) ALGY-Difficulty Breathing paroxetine [From Paxil] Allergy (Verified 07/09/20 13:15) Unknown Penicillins Allergy (Verified 07/09/20 13:15) ALGY-Anaphylaxis sertraline [From Zoloft] Allergy (Verified 07/09/20 13:15) Unknown tramadol Allergy (Verified 07/09/20 13:15) Unknown venlafaxine [From Effexor] Allergy (Verified 07/09/20 13:15) Unknown Vitals/I&O/Wt Last Vital Signs Temp 98.4 F 07/15/20 12:00 Pulse 94 07/15/20 14:00 Resp 18 07/15/20 13:35 BP 127/96 07/15/20 14:00 Pulse Ox 93 07/15/20 14:00 07/15/20 07/15/20 07/15/20 06:59 14:59 22:59 Intake Total 100 / 1380 800 / 800 Output Total 250 / 950 575 / 575 Balance -150 / 430 225 / 225 Weight last 48 hrs Weight 110.042 kg Weight 110.223 kg Physical Exam Const: COMMON NORMALS: no acute distress, patient oriented x3 and alert GENERAL APPEARANCE: cooperative and comfortable NUTRITIONAL APPEARANCE: obese morbidly obese ORIENTATION/CONSCIOUSNESS: Yes awake HENMT: COMMON NORMALS: normocephalic, atraumatic, hearing grossly normal bilaterally and moist oral mucous membranes HEAD & SCALP: normocephalic and atraumatic Eye: COMMON NORMALS: Equal, round and reactive pupils present, EOMs intact bilaterally and conjunctivae normal CONJUNCTIVA: Yes conjunctivae normal PUPIL: Yes Equal, round and reactive pupils present Neck/C-Spine: COMMON NORMALS: full ROM GENERAL: Yes normal visual inspection and Yes trachea midline Resp: COMMON NORMALS: normal respiratory effort, No retractions and No use of accessory muscles EFFORT & INSPECTION: Yes able to speak in complete sentences, Yes symmetric chest movement and Yes tachypneic (Intermittently) AUSCULTATION: diminished lung sounds OTHER: -Coarse upper airway breath sounds, on 8 L high flow nasal cannula Cardio: COMMON NORMALS: regular rate, regular rhythm, S1 normal heart sound present, S2 normal heart sound present and No murmurs present (Cardio) RATE: regular rate RHYTHM: regular rhythm HEART SOUNDS: S1 normal heart sound present and S2 normal heart sound present GI: COMMON NORMALS: Normal to inspection, nondistended, normoactive bowel sounds present, Soft to palpation and non-tender INSPECTION: Yes central obesity PALPATION: Yes Soft to palpation Extremity: COMMON NORMALS: normal to inspection, full ROM and no clubbing, cyanosis or edema; negative for no pedal edema Neuro: COMMON NORMALS: patient oriented x3, moves all extremities, no focal motor deficits, no sensory deficits noted and gait normal SENSORIUM/ORIENTATION: Yes alert Psych: COMMON NORMALS: mental status grossly normal, Normal thought process present, cooperative, normal affect and speech normal SPEECH: Yes normal speech THOUGHT PROCESS: Normal thought process present Skin: COMMON NORMALS: no rashes or lesions noted, no jaundice, no petechiae and no mottling GENERAL SKIN EXAM: no rashes or lesions noted Data : 07/15/20 05:00 07/15/20 05:00 Micro: Microbiology 07/14/20 18:00 Bacterial Antigens - Final Urine,Clean Catch 07/14/20 18:00 Legionella Urinary Antigen - Final Urethra 07/13/20 23:18 Blood Culture - Preliminary Blood NEGATIVE TO DATE 07/13/20 22:00 Blood Culture - Preliminary Blood NEGATIVE TO DATE 07/13/20 21:22 MRSA Culture - Final Nose A&P Assessment and plan (1) Pneumonia due to COVID-19 virus: -Found to be positive for COVID-19 -Noted elevated inflammatory markers though overall trending down -Imaging consistent with bilateral interstitial pneumonitis worse on the left in background of emphysema -Increasing oxygen requirement, currently on 10 L high flow -Close monitoring of respiratory status -Continue supportive care including zinc, vitamin C, antitussives, inhaler treatments as needed, steroids -Continue Remdesevir (day 3/5) -blood cx: prelim negative -MRSA, bacterial antigens, Legionella, influenza negative -Continue to monitor vital signs -Telemetry monitoring -Pulmonary toilet, incentive spirometry Status: Acute (2) Neutropenia: -Secondary to acute infection as previously normal -On neutropenic precautions, levels improving, continue daily labs -continue empiric Levaquin to cover for possible bacterial GI translocation (particularly Pseudomonas) Status: Acute Qualifiers: Neutropenia type: due to infection Qualified Code(s): D70.3 - Neutropenia due to infection (3) Hypoxia: -Secondary to acute COVID-19 infection as noted above Status: Acute (4) Hypertension: -Continue to monitor vital signs -Continue oral antihypertensives Status: Chronic Qualifiers: Hypertension type: essential hypertension Qualified Code(s): I10 - Essential (primary) hypertension (5) GERD (gastroesophageal reflux disease): -continue PPI Status: Chronic Qualifiers: Esophagitis presence: without esophagitis Qualified Code(s): K21.9 - Gastro-esophageal reflux disease without esophagitis (6) Type 2 diabetes mellitus: -A1c-8.2 -Accuchecks, ISS, hypoglycemia precautions -hold oral hypoglycemia agents Status: Chronic Qualifiers: Diabetes mellitus complication status: without complication Diabetes mellitus penitentiary insulin use: without termite renewal inspector use Qualified Code(s): E11.9 - Type 2 diabetes mellitus without complications (7) Hyponatremia: -Sodium normalized Status: Resolved Additional A&P Information -Morbid obesity: BMI-43 kg/m2 -GI ppx with PPI -DVT ppx with Eliquis -Dispo: home -Code status: FULL code -Prefers to update her family herself Attestations Medical Necessity Statement*: Patient requires hospitalization for continued management of COVID-19 infection with associated hypoxia and high oxygen requirement, on antiviral treatment. Time Spent in Patient Care: Greater than 35 minutes (>than 50% of time spent in counselling and/or direct pt care on unit). Coding Level of Care Code Acute Professional Model for [facility] Fwd Exam Comprehensive Diagnoses Pneumonia due to COVID-19 virus U07.1; J12.89 Neutropenia D70.3 Neutropenia type: due to infection Hypoxia R09.02 Hypertension I10 Hypertension type: essential hypertension GERD (gastroesophageal reflux disease) K21.9 Esophagitis presence: without esophagitis Type 2 diabetes mellitus E11.9 Diabetes mellitus complication status: without complication Diabetes mellitus penitentiary insulin use: without termite renewal inspector use Hyponatremia E87.1
[2020-07-15 17:12] LABS: Glucose Point of Care 267 mg/dL (70-110)
[2020-07-15] MEDS: apixaban 5 mg Tablet PO (17:26)
[2020-07-15 20:47] LABS: Glucose Point of Care 290 mg/dL (70-110)
--- NOTE | 2020-07-15 21:36 | PC.NURSE ---
Received report on patient from Melba SORIANO. Assumed care at this time.
[2020-07-16] VITALS (24 sets, daily range): BP systolic 99–143; BP diastolic 58–95; PULSE 71–100; RESP 14–23; TEMP 36.7–37.2; O2SAT 77–96; BMI 43.0
--- NOTE | 2020-07-16 06:00 | XR_ITS ---
WS: [id number] CHEST XRAY TECHNIQUE: Portable chest. CLINICAL INFORMATION: covid COMPARISON: July 14, 2020 FINDINGS: Heart: Normal cardiac silhouette. Lungs: Bilateral perihilar pulmonary infiltrates worse in the left midlung left lower lobe. Improved aeration the left lower lobe today. Chronic emphysema. Bones: Normal visualized bony structures. XR/XR chest 1V portable [id number] IMPRESSION: Bilateral perihilar and left midlung and lower lobe infiltrates. Improved aerat ion of the left lower lobe today.
[2020-07-16 06:04] LABS: Hematocrit 38.8 % (37.0-47.0); Hemoglobin 12.4 g/dL (11.5-15.3); Lymphocytes # 0.8 10^3/uL (0.8-4.8); Mean Corpuscular Volume 90.7 fL (81-99); Mean Platelet Volume 11.9 fL (7.4-10.4); Monocytes # 0.6 10^3/uL (0.2-0.9); Neutrophils # 2.39 10^3/uL (1.8-7.7); Neutrophils % 62.7 %; Nucleated Red Blood Cells % 0 %; Platelet Count 231 10^3/cmm (130-400); Red Blood Count 4.28 10^6/uL (4.1-5.3); White Blood Count 3.8 10^3/uL (4.0-10.0)
[2020-07-16 06:16] LABS: Fibrinogen 422 mg/dL (174-498)
[2020-07-16] MEDS: buPROPion XL (24 HR) 150 mg Tablet PO (06:34)
[2020-07-16 06:36] LABS: Alanine Aminotransferase 23 U/L (0-33); Albumin Level 3.6 g/dL (3.5-5.2); Alkaline Phosphatase 91 IU/L (35-105); Blood Urea Nitrogen 18 mg/dL (8-23); Carbon Dioxide 25 mmol/L (22-29); Chloride 98 mmol/L (98-107); Globulin 2.8 g/dL (1.3-4.6); Glomerular Filtration Rate 124.6 mL/min (90-130); Glucose 170 mg/dL (65-115); Osmolality Calculated 284 mOsm/kg (285-295); Sodium 134 mmol/L (136-145); Total Bilirubin 0.4 mg/dL (0.15-1.2); Total Protein 6.4 g/dL (6.6-8.7)
[2020-07-16 06:41] LABS: C Reactive Protein 20.3 mg/L (0.0-4.9); Creatine Phosphokinase 40 U/L (26-192); D Dimer 0.75 ug/mIFEU (0-0.59); Ferritin 390 ng/mL (15-150); NT Pro B Type Natriuretic Pept 82 pg/mL (0-125)
[2020-07-16 06:48] LABS: Aspartate Amino Transferase 26 U/L (0-32)
[2020-07-16 08:19] LABS: Glucose Point of Care 141 mg/dL (70-110)
[2020-07-16] MEDS: atorvastatin 40 mg Tablet PO (08:43)
[2020-07-16] MEDS: CELEcoxib 200 mg Capsule PO (08:43)
[2020-07-16] MEDS: apixaban 5 mg Tablet PO ×2 (08:43→17:02)
[2020-07-16] MEDS: zinc gluconate 50 mg Tablet PO (08:46)
[2020-07-16] MEDS: lisinopril 10 mg Tablet PO (08:46)
[2020-07-16] MEDS: pantoprazole DR 40 mg Tablet PO (08:46)
[2020-07-16] MEDS: levoFLOXacin 500 mg Tablet PO (08:46)
[2020-07-16] MEDS: ondansetron 2 mg/ML SDV 2 mL 4 MG IVP (09:26)
--- NOTE | 2020-07-16 09:26 | PC.NURSE ---
pt became nauseous. requested something for nausea. alex scanned by this nurse, gave my Vivian RN.
--- NOTE | 2020-07-16 12:15 | P.PN_ITS ---
Subjective Subjective: Interval history: Oxygen requirement down to 7 L high flow nasal cannula, hemodynamically stable, afebrile, 2000 mL urine output overnight, inflammatory markers trending down, on day 4 of Remdesevir. Sitting up in bed, reports feeling well though not quite as energetic as yesterday. Has some nasal congestion that is making it harder to breathe. Would like to try to ambulate this afternoon if she feels up to it. Medications: Reviewed: Yes Medication Review Details: Active Medications Generic Name Dose Route Start Last Admin Trade Name Freq PRN Reason Stop Dose Admin Acetaminophen 650 mg 07/13/20 18:36 Tylenol PO Q6H PRN Mild/Mod Pain Or Temp >/= 101 Albuterol Sulfate 2 puff 07/13/20 23:57 07/14/20 20:45 Ventolin INHALATION 2 puff Q4H.RESPIRATORY P RN Administration SHORTNESS OF ANSELMO TH Amitriptyline HCl 30 mg 07/13/20 18:36 Elavil PO .AT BEDTIME MARIANA Apixaban 5 mg 07/15/20 18:00 07/16/20 08:43 Eliquis PO 5 mg BID MARIANA Administration Ascorbic Acid 500 mg 07/14/20 09:00 07/16/20 08:43 Vitamin C PO Not Given DAILY MARIANA Atorvastatin Calci um 40 mg 07/14/20 09:00 07/16/20 08:43 Lipitor PO 40 mg DAILY MARIANA Administration Benzonatate 100 mg 07/13/20 21:00 07/16/20 08:54 Tessalon Pearls PO Not Given TID MARIANA Bisacodyl 10 mg 07/13/20 18:36 Dulcolax PO DAILY PRN CONSTIPATION Bupropion HCl 150 mg 07/14/20 06:00 07/16/20 06:34 Wellbutrin Xl (2 4 Hr) PO 150 mg QAM MARIANA Administration Celecoxib 200 mg 07/14/20 09:00 07/16/20 08:43 Celebrex PO 200 mg DAILY MARIANA Administration Cyclobenzaprine HC l 10 mg 07/13/20 18:36 Flexeril PO TID PRN muscle spasm Dexamethasone 6 mg 07/14/20 10:00 07/15/20 10:09 Decadron IVP 6 mg Q24H MARIANA Administration Dextrose 25 ml 07/13/20 18:36 D50w IVP ONCE PRN hypoglycemia prot ocol Protocol Dextrose 50 ml 07/13/20 18:36 D50w IVP PRN PRN hypoglycemia prot ocol Protocol Glucagon 1 mg 07/13/20 18:36 Glucagen IM ONCE PRN Adult Acute Hypog lycemia Prot. Protocol remdesivir (EUA) 1 00 mg/ 100 mls @ 100 mls /hr 07/14/20 17:30 07/15/20 17:21 Sodium Chloride IV 07/17/20 18:29 100 mls/hr Q24H MARIANA Administration Dextrose 500 mls @ 100 mls /hr 07/13/20 18:36 D5w IV ONCE PRN Adult Acute Hypog lycemia Prot Protocol Insulin Aspart 0 unit 07/13/20 18:36 07/16/20 08:42 Novolog SUBCUT 4 unit WM&BEDTIME MARIANA Administration Protocol Lactulose 10 gm 07/13/20 18:36 Constulose PO DAILY PRN CONSTIPA Lanolin 1 applic 07/15/20 14:52 Lanolin Oint TOPICAL PRN PRN DRYNESS Levofloxacin 500 mg 07/14/20 10:15 07/16/20 08:46 Levaquin PO 07/18/20 09:01 500 mg DAILY MARIANA Administration Protocol Lisinopril 10 mg 07/14/20 09:00 07/16/20 08:46 Prinivil PO 10 mg DAILY MARIANA Administration Non-Formulary Medi cation 1 tab 07/14/20 09:00 07/15/20 07:32 Vitamin B Comple x PO Not Given DAILY MARIANA Ondansetron HCl 4 mg 07/13/20 18:36 07/16/20 09:26 Zofran IVP 4 mg Q8H PRN Administration vomiting, or N/V if npo Pantoprazole Sodiu m 40 mg 07/14/20 09:00 07/16/20 08:46 Protonix PO 40 mg DAILY MARIANA Administration Fluticasone/Salmet delfin 1 puff 07/13/20 20:00 07/16/20 10:17 Advair Diskus 25 0-50 INHALATION 1 puff BID.RESPIRATORY S CH Administration Tiotropium [place] 18 mcg 07/14/20 08:00 07/16/20 10:17 Spiriva INHALATION 1 puff DAILY.RESPIRATORY MARIANA Administration Zinc Gluconate 50 mg 07/14/20 09:00 07/16/20 08:46 Zinc Gluconate PO 50 mg DAILY MARIANA Administration clarithromycin Allergy (Verified 07/09/20 13:15) ADR-Diarrhea codeine Allergy (Verified 07/09/20 13:15) ALGY-Hives fentanyl [From Duragesic] Allergy (Verified 07/09/20 13:15) ALGY-Hives levofloxacin [From Levaquin] Allergy (Verified 07/13/20 16:32) Unknown morphine Allergy (Verified 07/09/20 13:15) ALGY-Difficulty Breathing paroxetine [From Paxil] Allergy (Verified 07/09/20 13:15) Unknown Penicillins Allergy (Verified 07/09/20 13:15) ALGY-Anaphylaxis sertraline [From Zoloft] Allergy (Verified 07/09/20 13:15) Unknown tramadol Allergy (Verified 07/09/20 13:15) Unknown venlafaxine [From Effexor] Allergy (Verified 07/09/20 13:15) Unknown Vitals/I&O/Wt Last Vital Signs Temp 98.2 F 07/15/20 23:00 Pulse 85 07/16/20 09:45 Resp 18 07/16/20 09:45 BP 104/62 07/16/20 06:00 Pulse Ox 95 07/16/20 09:45 07/15/20 07/16/20 07/16/20 22:59 06:59 14:59 Intake Total 700 / 1500 350 / 1850 Output Total 1000 / 1575 500 / 2075 Balance -300 / -75 -150 / -225 Weight last 48 hrs Weight 110.042 kg Weight 110.042 kg Physical Exam Const: COMMON NORMALS: no acute distress, patient oriented x3 and alert GENERAL APPEARANCE: cooperative and comfortable NUTRITIONAL APPEARANCE: obese morbidly obese ORIENTATION/CONSCIOUSNESS: Yes awake HENMT: COMMON NORMALS: normocephalic, atraumatic, hearing grossly normal bilaterally and moist oral mucous membranes HEAD & SCALP: normocephalic and atraumatic Eye: COMMON NORMALS: Equal, round and reactive pupils present, EOMs intact bilaterally and conjunctivae normal CONJUNCTIVA: Yes conjunctivae normal PUPIL: Yes Equal, round and reactive pupils present Neck/C-Spine: COMMON NORMALS: full ROM GENERAL: Yes normal visual inspection and Yes trachea midline Resp: COMMON NORMALS: normal respiratory effort, No retractions and No use of accessory muscles EFFORT & INSPECTION: Yes able to speak in complete sentences, Yes symmetric chest movement and Yes tachypneic (Intermittently) AUSCULTATION: diminished lung sounds OTHER: -Coarse upper airway breath sounds, on 6-7 L high flow nasal cannula Cardio: COMMON NORMALS: regular rate, regular rhythm, S1 normal heart sound present, S2 normal heart sound present and No murmurs present (Cardio) RATE: regular rate RHYTHM: regular rhythm HEART SOUNDS: S1 normal heart sound present and S2 normal heart sound present GI: COMMON NORMALS: Normal to inspection, nondistended, normoactive bowel sounds present, Soft to palpation and non-tender INSPECTION: Yes central obesity PALPATION: Yes Soft to palpation Extremity: COMMON NORMALS: normal to inspection, full ROM and no clubbing, cyanosis or edema; negative for no pedal edema Neuro: COMMON NORMALS: patient oriented x3, moves all extremities, no focal motor deficits, no sensory deficits noted and gait normal SENSORIUM/ORIENTATION: Yes alert Psych: COMMON NORMALS: mental status grossly normal, Normal thought process present, cooperative, normal affect and speech normal SPEECH: Yes normal speech THOUGHT PROCESS: Normal thought process present Skin: COMMON NORMALS: no rashes or lesions noted, no jaundice, no petechiae and no mottling GENERAL SKIN EXAM: no rashes or lesions noted Data : 07/16/20 03:35 07/16/20 03:35 A&P Assessment and plan (1) Pneumonia due to COVID-19 virus: -Found to be positive for COVID-19 -Noted elevated inflammatory markers though overall trending down -Imaging consistent with bilateral interstitial pneumonitis worse on the left in background of emphysema -Increasing oxygen requirement, currently on 6-7 L high flow -Close monitoring of respiratory status -Continue supportive care including zinc, vitamin C, antitussives, inhaler treatments as needed, steroids -Continue Remdesevir (day 4/5) -blood cx: prelim negative -MRSA, bacterial antigens, Legionella, influenza negative -Continue to monitor vital signs -Telemetry monitoring -Pulmonary toilet, incentive spirometry Status: Acute (2) Neutropenia: -Secondary to acute infection as previously normal -On neutropenic precautions, levels improving, continue daily labs -continue empiric Levaquin to cover for possible bacterial GI translocation (pa rticularly Pseudomonas) Status: Acute Qualifiers: Neutropenia type: due to infection Qualified Code(s): D70.3 - Neutropenia due to infection (3) Hypoxia: -Secondary to acute COVID-19 infection as noted above Status: Acute (4) Hypertension: -Continue to monitor vital signs -Continue oral antihypertensives Status: Chronic Qualifiers: Hypertension type: essential hypertension Qualified Code(s): I10 - Essential (primary) hypertension (5) GERD (gastroesophageal reflux disease): -continue PPI Status: Chronic Qualifiers: Esophagitis presence: without esophagitis Qualified Code(s): K21.9 - Gastro-esophageal reflux disease without esophagitis (6) Type 2 diabetes mellitus: -A1c-8.2 -Accuchecks, ISS, hypoglycemia precautions -hold oral hypoglycemia agents Status: Chronic Qualifiers: Diabetes mellitus complication status: without complication Diabetes mellitus long term care social worker insulin use: without longterm use Qualified Code(s): E11.9 - Type 2 diabetes mellitus without complications (7) Hyponatremia: -Sodium normalized Status: Resolved Additional A&P Information -Morbid obesity: BMI-43 kg/m2 -GI ppx with PPI -DVT ppx with Eliquis -Dispo: home -Code status: FULL code -Prefers to update her family herself Attestations Medical Necessity Statement*: Patient requires hospitalization for continued treatment of COVID-19 infection, continues to have high oxygen requirement and is on antiviral treatment. Time Spent in Patient Care: 16 - 35 minutes (>than 50% of time spent in counselling and/or direct pt care on unit) . 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
[2020-07-16 12:19] LABS: Glucose Point of Care 117 mg/dL (70-110)
[2020-07-16] MEDS: dexamethasone 4 mg/mL INJ 6 MG IVP (13:54)
[2020-07-16 17:18] LABS: Glucose Point of Care 260 mg/dL (70-110)
--- NOTE | 2020-07-16 17:41 | PC.NURSE ---
1530 Ambulated in [place] approx 100 ft with o2 on pt pushing a wheel chair. Had to go slow and stop to rest at times, but moira well.
[2020-07-16 20:20] LABS: Glucose Point of Care 303 mg/dL (70-110)
[2020-07-17] VITALS (19 sets, daily range): BP systolic 102–125; BP diastolic 56–97; PULSE 82–116; RESP 10–30; TEMP 36–37.1; O2SAT 83–96
--- NOTE | 2020-07-17 04:55 | PC.NURSE ---
Pt sats have dropped through the night. Pt was placed on 15 liter high flow NC sats in the high 80's. Pt complained of her nose being stuffy and asked for a mask. Patient is currently on 15L on oxymask sats at 94% and tolerating well.
[2020-07-17 06:14] LABS: Hematocrit 37.3 % (37.0-47.0); Hemoglobin 11.7 g/dL (11.5-15.3); Lymphocytes # 0.8 10^3/uL (0.8-4.8); Lymphocytes % 16.2 %; Mean Corpuscular HGB Conc 31.4 g/dL (30.0-36.0); Mean Corpuscular Hemoglobin 28.7 pg (28.0-34.0); Mean Corpuscular Volume 91.6 fL (81-99); Mean Platelet Volume 11.3 fL (7.4-10.4); Monocytes # 0.4 10^3/uL (0.2-0.9); Neutrophils # 3.67 10^3/uL (1.8-7.7); Neutrophils % 75.2 %; Nucleated Red Blood Cells % 0 %; Platelet Count 245 10^3/cmm (130-400); Red Blood Count 4.07 10^6/uL (4.1-5.3); Red Cell Distribution Width 12.7 % (12.1-15.1); White Blood Count 4.9 10^3/uL (4.0-10.0)
[2020-07-17 07:06] LABS: Ferritin 325 ng/mL (15-150)
[2020-07-17 07:13] LABS: Alanine Aminotransferase 23 U/L (0-33); Albumin Level 3.5 g/dL (3.5-5.2); Alkaline Phosphatase 96 IU/L (35-105); Anion Gap 16.1 (5-19); Aspartate Amino Transferase 22 U/L (0-32); Blood Urea Nitrogen 21 mg/dL (8-23); C Reactive Protein 22.9 mg/L (0.0-4.9); Calcium 8.4 mg/dL (8.5-10.5); Carbon Dioxide 24 mmol/L (22-29); Chloride 101 mmol/L (98-107); Globulin 2.6 g/dL (1.3-4.6); Glucose 293 mg/dL (65-115); Osmolality Calculated 298 mOsm/kg (285-295); Potassium 4.1 mmol/L (3.5-5.1); Sodium 137 mmol/L (136-145); Total Bilirubin 0.3 mg/dL (0.15-1.2); Total Protein 6.1 g/dL (6.6-8.7)
[2020-07-17 07:18] LABS: Fibrinogen 507 mg/dL (174-498)
[2020-07-17 07:22] LABS: D Dimer 1.04 ug/mIFEU (0-0.59)
[2020-07-17 07:30] LABS: Glucose Point of Care 284 mg/dL (70-110)
[2020-07-17 09:30] LABS: Lactate Dehydrogenase 336 U/L (135-214)
[2020-07-17] MEDS: buPROPion XL (24 HR) 150 mg Tablet PO (09:41)
[2020-07-17] MEDS: zinc gluconate 50 mg Tablet PO (09:55)
[2020-07-17] MEDS: benzonatate 100 mg Capsule PO ×3 (09:55→17:49)
[2020-07-17] MEDS: ascorbic acid 500 mg Tablet PO (09:56)
[2020-07-17] MEDS: pantoprazole DR 40 mg Tablet PO (09:57)
[2020-07-17] MEDS: apixaban 5 mg Tablet PO ×2 (09:57→16:20)
[2020-07-17] MEDS: lisinopril 10 mg Tablet PO (09:57)
[2020-07-17] MEDS: levoFLOXacin 500 mg Tablet PO (09:57)
[2020-07-17] MEDS: atorvastatin 40 mg Tablet PO (09:57)
[2020-07-17] MEDS: dexamethasone 4 mg/mL INJ 6 MG IVP (09:58)
[2020-07-17] MEDS: CELEcoxib 200 mg Capsule PO (10:24)
[2020-07-17] MEDS: fluticasone nasal spray 16gm Btl 1 SPRAY NASAL ×2 (10:24→16:19)
[2020-07-17] MEDS: NON-FORMULARY MEDICATION (Vitamin B Complex 1 TAB) 1 EACH PO (10:25)
[2020-07-17] MEDS: ondansetron 2 mg/ML SDV 2 mL 4 MG IVP (10:47)
[2020-07-17] MEDS: albuterol 8 gm MDI 2 PUFF INHALATION (11:02)
[2020-07-17 11:03] LABS: Glucose Point of Care 209 mg/dL (70-110)
[2020-07-17 16:08] LABS: Glucose Point of Care 342 mg/dL (70-110)
--- NOTE | 2020-07-17 17:32 | PM.PN ---
Subjective Subjective: Interval history: Resting in bed, had been up to 15 L oxy-mask earlier this afternoon, now down to 10 L. Continues to be motivated to use incentive spirometry and flutter valve. Encouraged by her progress so far. Stable inflammatory markers. Has been trying to ambulate around the room, has had some expectoration with cough. On day 5 of Remdesevir. Medications: Reviewed: Yes Medication Review Details: Active Medications Generic Name Dose Route Start Last Admin Trade Name Freq PRN Reason Stop Dose Admin Acetaminophen 650 mg 07/13/20 18:36 Tylenol PO Q6H PRN Mild/Mod Pain Or Temp >/= 101 Albuterol Sulfate 2 puff 07/13/20 23:57 07/17/20 11:02 Ventolin INHALATION 2 puff Q4H.RESPIRATORY P RN Administration SHORTNESS OF ANSELMO TH Amitriptyline HCl 30 mg 07/17/20 21:00 Elavil PO BEDTIME MARIANA Apixaban 5 mg 07/15/20 18:00 07/17/20 16:20 Eliquis PO 5 mg BID MARIANA Administration Ascorbic Acid 500 mg 07/14/20 09:00 07/17/20 09:56 Vitamin C PO 500 mg DAILY MARIANA Administration Atorvastatin Calci um 40 mg 07/14/20 09:00 07/17/20 09:57 Lipitor PO 40 mg DAILY MARIANA Administration Benzonatate 100 mg 07/13/20 21:00 07/17/20 11:50 Tessalon Pearls PO 100 mg TID MARIANA Administration Bisacodyl 10 mg 07/13/20 18:36 Dulcolax PO DAILY PRN CONSTIPATION Bupropion HCl 150 mg 07/14/20 06:00 07/17/20 09:41 Wellbutrin Xl (2 4 Hr) PO 150 mg QAM MARIANA Administration Celecoxib 200 mg 07/14/20 09:00 07/17/20 10:24 Celebrex PO 200 mg DAILY MARIANA Administration Cyclobenzaprine HC l 10 mg 07/13/20 18:36 Flexeril PO TID PRN muscle spasm Dexamethasone 6 mg 07/14/20 10:00 07/17/20 09:58 Decadron IVP 6 mg Q24H MARIANA Administration Dextrose 25 ml 07/13/20 18:36 D50w IVP ONCE PRN hypoglycemia prot ocol Protocol Dextrose 50 ml 07/13/20 18:36 D50w IVP PRN PRN hypoglycemia prot ocol Protocol Fluticasone Propio pete 1 spray 07/16/20 18:00 07/17/20 16:19 Flonase NASAL 2 inhalation BID MARIANA Administration Glucagon 1 mg 07/13/20 18:36 Glucagen IM ONCE PRN Adult Acute Hypog lycemia Prot. Protocol Guaifenesin 600 mg 07/17/20 21:00 Mucinex PO BID MARIANA remdesivir (EUA) 1 00 mg/ 100 mls @ 100 mls /hr 07/14/20 17:30 07/17/20 17:16 Sodium Chloride IV 07/17/20 18:29 100 mls/hr Q24H MARIANA Administration Dextrose 500 mls @ 100 mls /hr 07/13/20 18:36 D5w IV ONCE PRN Adult Acute Hypog lycemia Prot Protocol Insulin Aspart 0 unit 07/13/20 18:36 07/17/20 16:22 Novolog SUBCUT 12 unit WM&BEDTIME MARIANA Administration Protocol Lactulose 10 gm 07/13/20 18:36 Constulose PO DAILY PRN CONSTIPA Lanolin 1 applic 07/15/20 14:52 Lanolin Oint TOPICAL PRN PRN DRYNESS Lanolin 1 applic 07/16/20 16:55 Lanolin Oint TOPICAL PRN PRN DRYNESS Levofloxacin 500 mg 07/14/20 10:15 07/17/20 09:57 Levaquin PO 07/18/20 09:01 500 mg DAILY MARIANA Administration Protocol Lisinopril 10 mg 07/14/20 09:00 07/17/20 09:57 Prinivil PO 10 mg DAILY MARIANA Administration Non-Formulary Medi cation 1 tab 07/14/20 09:00 07/17/20 10:25 Vitamin B Comple x PO 1 tab DAILY MARIANA Administration Ondansetron HCl 4 mg 07/13/20 18:36 07/17/20 10:47 Zofran IVP 4 mg Q8H PRN Administration vomiting, or N/V if npo Pantoprazole Sodiu m 40 mg 07/14/20 09:00 07/17/20 09:57 Protonix PO 40 mg DAILY MARIANA Administration Fluticasone/Salmet delfin 1 puff 07/13/20 20:00 07/17/20 11:01 Advair Diskus 25 0-50 INHALATION 1 puff BID.RESPIRATORY S CH Administration Sodium Chloride 1 spray 07/16/20 15:44 [place] Nasal Spra y NASAL PRN PRN DRYNESS Tiotropium [place] 18 mcg 07/14/20 08:00 07/17/20 11:01 Spiriva INHALATION 1 puff DAILY.RESPIRATORY MARIANA Administration Zinc Gluconate 50 mg 07/14/20 09:00 07/17/20 09:55 Zinc Gluconate PO 50 mg DAILY MARIANA Administration clarithromycin Allergy (Verified 07/09/20 13:15) ADR-Diarrhea codeine Allergy (Verified 07/09/20 13:15) ALGY-Hives fentanyl [From Duragesic] Allergy (Verified 07/09/20 13:15) ALGY-Hives levofloxacin [From Levaquin] Allergy (Verified 07/13/20 16:32) Unknown morphine Allergy (Verified 07/09/20 13:15) ALGY-Difficulty Breathing paroxetine [From Paxil] Allergy (Verified 07/09/20 13:15) Unknown Penicillins Allergy (Verified 07/09/20 13:15) ALGY-Anaphylaxis sertraline [From Zoloft] Allergy (Verified 07/09/20 13:15) Unknown tramadol Allergy (Verified 07/09/20 13:15) Unknown venlafaxine [From Effexor] Allergy (Verified 07/09/20 13:15) Unknown Vitals/I&O/Wt Last Vital Signs Temp 97.9 F 07/17/20 13:50 Pulse 99 07/17/20 16:42 Resp 25 H 07/17/20 16:42 BP 125/82 07/17/20 16:42 Pulse Ox 91 07/17/20 16:42 07/17/20 07/17/20 07/17/20 06:59 14:59 22:59 Intake Total 420 / 420 400 / 820 Output Total 350 / 1300 Balance -350 / -140 420 / 420 400 / 820 Weight last 48 hrs Weight 114.929 kg Weight 110.042 kg Physical Exam Const: COMMON NORMALS: no acute distress, patient oriented x3 and alert GENERAL APPEARANCE: cooperative and comfortable NUTRITIONAL APPEARANCE: obese morbidly obese ORIENTATION/CONSCIOUSNESS: Yes awake HENMT: COMMON NORMALS: normocephalic, atraumatic, hearing grossly normal bilaterally and moist oral mucous membranes HEAD & SCALP: normocephalic and atraumatic Eye: COMMON NORMALS: Equal, round and reactive pupils present, EOMs intact bilaterally and conjunctivae normal CONJUNCTIVA: Yes conjunctivae normal PUPIL: Yes Equal, round and reactive pupils present Neck/C-Spine: COMMON NORMALS: full ROM GENERAL: Yes normal visual inspection and Yes trachea midline Resp: COMMON NORMALS: normal respiratory effort, No retractions and No use of accessory muscles EFFORT & INSPECTION: Yes able to speak in complete sentences, Yes symmetric chest movement and Yes tachypneic (Intermittently) AUSCULTATION: diminished lung sounds OTHER: -air entry improving bilaterally, on 10 L oxy-mask Cardio: COMMON NORMALS: regular rate, regular rhythm, S1 normal heart sound present, S2 normal heart sound present and No murmurs present (Cardio) RATE: regular rate RHYTHM: regular rhythm HEART SOUNDS: S1 normal heart sound present and S2 normal heart sound present GI: COMMON NORMALS: Normal to inspection, nondistended, normoactive bowel sounds present, Soft to palpation and non-tender INSPECTION: Yes central obesity PALPATION: Yes Soft to palpation Extremity: COMMON NORMALS: normal to inspection, full ROM and no clubbing, cyanosis or edema; negative for no pedal edema Neuro: COMMON NORMALS: patient oriented x3, moves all extremities, no focal motor deficits, no sensory deficits noted and gait normal SENSORIUM/ORIENTATION: Yes alert Psych: COMMON NORMALS: mental status grossly normal, Normal thought process present, cooperative, normal affect and speech normal SPEECH: Yes normal speech THOUGHT PROCESS: Normal thought process present Skin: COMMON NORMALS: no rashes or lesions noted, no jaundice, no petechiae and no mottling GENERAL SKIN EXAM: no rashes or lesions noted Data : 07/17/20 04:45 07/17/20 04:45 A&P Assessment and plan (1) Pneumonia due to COVID-19 virus: -Found to be positive for COVID-19 -Noted elevated inflammatory markers though overall trending down -Imaging consistent with bilateral interstitial pneumonitis worse on the left in background of emphysema -Increasing oxygen requirement, currently on 6-7 L high flow -Close monitoring of respiratory status -Continue supportive care including zinc, vitamin C, antitussives, inhaler treatments as needed, steroids -Continue Remdesevir (day 5/5) -blood cx: prelim negative -MRSA, bacterial antigens, Legionella, influenza negative -Continue to monitor vital signs -Telemetry monitoring -Pulmonary toilet, incentive spirometry Status: Acute (2) Neutropenia: -Secondary to acute infection as previously normal -On neutropenic precautions, levels improving, continue daily labs -continue empiric Levaquin to cover for possible bacterial GI translocation (particularly Pseudomonas) Status: Acute Qualifiers: Neutropenia type: due to infection Qualified Code(s): D70.3 - Neutropenia due to infection (3) Hypoxia: -Secondary to acute COVID-19 infection as noted above Status: Acute (4) Hypertension: -Continue to monitor vital signs -Continue oral antihypertensives Status: Chronic Qualifiers: Hypertension type: essential hypertension Qualified Code(s): I10 - Essential (primary) hypertension (5) GERD (gastroesophageal reflux disease): -continue PPI Status: Chronic Qualifiers: Esophagitis presence: without esophagitis Qualified Code(s): K21.9 - Gastro-esophageal reflux disease without esophagitis (6) Type 2 diabetes mellitus: -A1c-8.2 -Accuchecks, ISS, hypoglycemia precautions -hold oral hypoglycemia agents Status: Chronic Qualifiers: Diabetes mellitus termite control service representative insulin use: without usp use Diabetes mellitus complication status: without complication Qualified Code(s): E11.9 - Type 2 diabetes mellitus without complications (7) Hyponatremia: -Sodium normalized Status: Resolved Additional A&P Information -Morbid obesity: BMI-43 kg/m2 -GI ppx with PPI -DVT ppx with Eliquis -Dispo: home -Code status: FULL code -Prefers to update her family herself. Criteria for discharge would be decreased oxygen requirement, hemodynamic stability. Attestations Medical Necessity Statement*: Patient requires hospitalization for continued management of COVID-19 infection, pneumonia, high oxygen requirement, completion of antiviral treatment. Time Spent in Patient Care: 16 - 35 minutes (>than 50% of time spent in counselling and/or direct pt care on unit). 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
[2020-07-17] MEDS: saline nasal spray 44mL Btl 1 SPRAY NASAL (17:47)
[2020-07-17] MEDS: lanolin oint 7 gm 1 APPLIC TOPICAL (17:49)
--- NOTE | 2020-07-17 18:17 | PC.NURSE ---
delightful patient. kody. gets up to void on bsc on her own. bathed mid afternoon. only complaint was that she was not getting the high protein diet she wanted with low to no carbs. diet adjusted and family brought her some free range eggs and other fruit snacks. blood sugars remain high but she is still on steroid dosing.
[2020-07-17 20:37] LABS: Glucose Point of Care 298 mg/dL (70-110)
[2020-07-17] MEDS: guaiFENesin 600 mg Tablet PO (20:51)
--- NOTE | 2020-07-17 22:12 | PC.NURSE ---
Patient ambulated through hallway with RT and RN at side. RT administered proactive doses of patient prescribed inhalers, and placed patient on 15L via oxymask for ambulation. Patient was then decreased down to 8L with SPO2 86-89 at rest in bed. After collaboration with RT, patient was placed on 10L [place] via oxymask while patient resting during night. Education given to patient on O2 delivery and need for turning coughing and deep breathing frequently. Patient agreed it to be best to try and ambulate at least 3 times throughout each shift in hallways when possible.
[2020-07-18] VITALS (10 sets, daily range): BP systolic 103–134; BP diastolic 70–87; PULSE 75–96; RESP 15–18; TEMP 36.7–37.2; O2SAT 89–93
--- NOTE | 2020-07-18 00:38 | PC.NURSE ---
Pt maintaining SPO2 at 98% while sleeping. Titrated O2 down from 10L to 8L and maintaining 97-98%. Monitoring, and will continue to try and titrate O2 throughout night.
[2020-07-18 05:20] LABS: Basophils % 0.2 %; Eosinophils % 0.3 %; Hematocrit 36.6 % (37.0-47.0); Hemoglobin 11.3 g/dL (11.5-15.3); Lymphocytes % 17.2 %; Mean Corpuscular HGB Conc 30.9 g/dL (30.0-36.0); Mean Corpuscular Hemoglobin 28.5 pg (28.0-34.0); Mean Corpuscular Volume 92.2 fL (81-99); Mean Platelet Volume 11.9 fL (7.4-10.4); Monocytes # 0.6 10^3/uL (0.2-0.9); Monocytes % 9.6 %; Neutrophils # 4.24 10^3/uL (1.8-7.7); Neutrophils % 71.7 %; Nucleated Red Blood Cells % 0 %; Platelet Count 227 10^3/cmm (130-400); Red Blood Count 3.97 10^6/uL (4.1-5.3); Red Cell Distribution Width 12.9 % (12.1-15.1); White Blood Count 5.9 10^3/uL (4.0-10.0)
--- NOTE | 2020-07-18 06:00 | XR_ITS ---
WS: [id number] XR chest 1V portable [id number] REASON FOR EXAM: covid FINDINGS: Compared to the previous examination of 07/16/2020 multiple ill-defined densities are again noted in the periphery of both lung parker. These changes appear somewhat more prominent on today's examinatio n however this is felt to be due to the lungs being less well expanded on this examination. No new findings are noted. XR/XR chest 1V portable [id number] IMPRESSION: Stable abnormal chest as above.
[2020-07-18] MEDS: buPROPion XL (24 HR) 150 mg Tablet PO (06:06)
--- NOTE | 2020-07-18 06:45 | PC.NURSE ---
Shift Summary: Patient ambulated through hallways with RN this AM. She was placed on 15L NC on portable O2. No complications arose. Overnight Patient O2 levels while sleeping were able to be decreased down to 6L. While sleeping on right side, patient SPO2 was between 96-98%. When patient shifted to left side lying, patient O2 lowered to 85%, at which time O2 was bumped back up to 10L. Patient overall slept well with no reports of pain. 2100 u/o. No needs reported at this time. Handoff report given to dayshift RN.
[2020-07-18 07:06] LABS: Procalcitonin 0.04 ng/mL (0-0.5)
[2020-07-18 07:17] LABS: C Reactive Protein 14.8 mg/L (0.0-4.9); Ferritin 289 ng/mL (15-150); Lactate Dehydrogenase 309 U/L (135-214)
[2020-07-18 07:35] LABS: Glucose Point of Care 149 mg/dL (70-110)
[2020-07-18 08:09] LABS: D Dimer 0.66 ug/mIFEU (0-0.59)
[2020-07-18] MEDS: albuterol 8 gm MDI 2 PUFF INHALATION (08:35)
[2020-07-18] MEDS: ascorbic acid 500 mg Tablet PO (09:02)
[2020-07-18] MEDS: lisinopril 10 mg Tablet PO (09:03)
[2020-07-18] MEDS: apixaban 5 mg Tablet PO ×2 (09:03→14:51)
[2020-07-18] MEDS: atorvastatin 40 mg Tablet PO (09:03)
[2020-07-18] MEDS: levoFLOXacin 500 mg Tablet PO (09:03)
[2020-07-18] MEDS: pantoprazole DR 40 mg Tablet PO (09:03)
[2020-07-18] MEDS: fluticasone nasal spray 16gm Btl 1 SPRAY NASAL ×2 (09:04→14:51)
[2020-07-18] MEDS: guaiFENesin 600 mg Tablet PO ×2 (09:04→14:54)
[2020-07-18] MEDS: CELEcoxib 200 mg Capsule PO (09:05)
[2020-07-18] MEDS: saline nasal spray 44mL Btl 1 SPRAY NASAL (09:06)
[2020-07-18] MEDS: ondansetron 2 mg/ML SDV 2 mL 4 MG IVP (09:06)
[2020-07-18] MEDS: lanolin oint 7 gm 1 APPLIC TOPICAL (09:06)
[2020-07-18] MEDS: zinc gluconate 50 mg Tablet PO (09:10)
[2020-07-18] MEDS: benzonatate 100 mg Capsule PO (10:39)
[2020-07-18] MEDS: dexamethasone 4 mg/mL INJ 6 MG IVP (10:39)
[2020-07-18] MEDS: alum-mag-hydroxide-sime 30 mL UDC PO (10:40)
[2020-07-18 10:56] LABS: Fibrinogen 458 mg/dL (174-498)
--- NOTE | 2020-07-18 11:22 | PC.NURSE ---
about 10 am patient woke up with indigestion and heart burn. dr martinez was notified and maalox was ordered. meanwhile the patient asked for soda to burp and then refused it when it came, she asked for alkaselter, but we dont carry it. she took a carafate and refused the offer of nystatin for her sore tongue that had no white pateches or redness on its surface. she thrashed and stood up and talked on the phone but would not take anything offered. she later stated that gavscon might help but one sip of the maalox and she spilt it over the bed sputtering. as of 1130 she does not seem in physical distress. and is less restless, the carafate may have worked.
[2020-07-18 11:23] LABS: Glucose Point of Care 124 mg/dL (70-110)
--- NOTE | 2020-07-18 12:53 | PC.NURSE ---
when patient sleeps, and stops talking on the phone her sats are 97 on 10liters. when up and talking she requires 12 liters oxymask. she refuses to put on hf nc while eating and takes off her mask and desats to 74. she will not take medical advice on this but does not state why.
--- NOTE | 2020-07-18 14:49 | P.PN_ITS ---
Subjective Subjective: Interval history: Oxygen requirement holding in 10-12 L range, afebrile, hemodynamically stable, had 2100 mL urine output overnight, improved inflammatory markers. Completed 5-day course of remdesevir. Medications: Reviewed: Yes Medication Review Details: Active Medications Generic Name Dose Route Start Last Admin Trade Name Freq PRN Reason Stop Dose Admin Acetaminophen 650 mg 07/13/20 18:36 Tylenol PO Q6H PRN Mild/Mod Pain Or Temp >/= 101 Albuterol Sulfate 2 puff 07/13/20 23:57 07/18/20 08:35 Ventolin INHALATION 2 puff Q4H.RESPIRATORY P RN Administration SHORTNESS OF ANSELMO TH Amitriptyline HCl 30 mg 07/17/20 21:00 07/17/20 20:51 Elavil PO 30 mg BEDTIME MARIANA Administration Apixaban 5 mg 07/15/20 18:00 07/18/20 09:03 Eliquis PO 5 mg BID MARIANA Administration Ascorbic Acid 500 mg 07/14/20 09:00 07/18/20 09:02 Vitamin C PO 500 mg DAILY MARIANA Administration Atorvastatin Calci um 40 mg 07/14/20 09:00 07/18/20 09:03 Lipitor PO 40 mg DAILY MARIANA Administration Bisacodyl 10 mg 07/13/20 18:36 Dulcolax PO DAILY PRN CONSTIPATION Bupropion HCl 150 mg 07/14/20 06:00 07/18/20 06:06 Wellbutrin Xl (2 4 Hr) PO 150 mg QAM MARIANA Administration Calcium Carbonate 500 mg 07/18/20 11:28 Tums PO Q4H PRN INDIGESTION Celecoxib 200 mg 07/14/20 09:00 07/18/20 09:05 Celebrex PO 200 mg DAILY MARIANA Administration Cyclobenzaprine HC l 10 mg 07/13/20 18:36 Flexeril PO TID PRN muscle spasm Dexamethasone 6 mg 07/14/20 10:00 07/18/20 10:39 Decadron IVP 6 mg Q24H MARIANA Administration Dextrose 25 ml 07/13/20 18:36 D50w IVP ONCE PRN hypoglycemia prot ocol Protocol Dextrose 50 ml 07/13/20 18:36 D50w IVP PRN PRN hypoglycemia prot ocol Protocol Fluticasone Propio pete 1 spray 07/16/20 18:00 07/18/20 09:04 Flonase NASAL 2 inhalation BID MARIANA Administration Glucagon 1 mg 07/13/20 18:36 Glucagen IM ONCE PRN Adult Acute Hypog lycemia Prot. Protocol Guaifenesin 600 mg 07/17/20 21:00 07/18/20 09:04 Mucinex PO 600 mg BID MARIANA Administration Dextrose 500 mls @ 100 mls /hr 07/13/20 18:36 D5w IV ONCE PRN Adult Acute Hypog lycemia Prot Protocol Insulin Aspart 0 unit 07/13/20 18:36 07/18/20 11:35 Novolog SUBCUT Not Given WM&BEDTIME MARIANA Protocol Lactulose 10 gm 07/13/20 18:36 Constulose PO DAILY PRN CONSTIPA Lanolin 1 applic 07/15/20 14:52 07/18/20 09:06 Lanolin Oint TOPICAL 1 applic PRN PRN Administration DRYNESS Lanolin 1 applic 07/16/20 16:55 Lanolin Oint TOPICAL PRN PRN DRYNESS Lisinopril 10 mg 07/14/20 09:00 07/18/20 09:03 Prinivil PO 10 mg DAILY MARIANA Administration Non-Formulary Medi cation 1 tab 07/14/20 09:00 07/18/20 09:05 Vitamin B Comple x PO Not Given DAILY MARIANA Ondansetron HCl 4 mg 07/13/20 18:36 07/18/20 09:06 Zofran IVP 4 mg Q8H PRN Administration vomiting, or N/V if npo Pantoprazole Sodiu m 40 mg 07/14/20 09:00 07/18/20 09:03 Protonix PO 40 mg DAILY MARIANA Administration Fluticasone/Salmet delfin 1 puff 07/13/20 20:00 07/18/20 08:35 Advair Diskus 25 0-50 INHALATION 1 puff BID.RESPIRATORY S CH Administration Sodium Chloride 1 spray 07/16/20 15:44 07/18/20 09:06 [place] Nasal Spra y NASAL 2 inhalation PRN PRN Administration DRYNESS Tiotropium [place] 18 mcg 07/14/20 08:00 07/18/20 08:35 Spiriva INHALATION Not Given DAILY.RESPIRATORY MARIANA Zinc Gluconate 50 mg 07/14/20 09:00 07/18/20 09:10 Zinc Gluconate PO 50 mg DAILY MARIANA Administration clarithromycin Allergy (Verified 07/09/20 13:15) ADR-Diarrhea codeine Allergy (Verified 07/09/20 13:15) ALGY-Hives fentanyl [From Duragesic] Allergy (Verified 07/09/20 13:15) ALGY-Hives levofloxacin [From Levaquin] Allergy (Verified 07/13/20 16:32) Unknown morphine Allergy (Verified 07/09/20 13:15) ALGY-Difficulty Breathing paroxetine [From Paxil] Allergy (Verified 07/09/20 13:15) Unknown Penicillins Allergy (Verified 07/09/20 13:15) ALGY-Anaphylaxis sertraline [From Zoloft] Allergy (Verified 07/09/20 13:15) Unknown tramadol Allergy (Verified 07/09/20 13:15) Unknown venlafaxine [From Effexor] Allergy (Verified 07/09/20 13:15) Unknown Vitals/I&O/Wt Last Vital Signs Temp 98.0 F 07/18/20 13:43 Pulse 93 07/18/20 13:43 Resp 18 07/18/20 13:43 BP 117/74 07/18/20 13:43 Pulse Ox 89 L 07/18/20 13:43 07/17/20 07/18/20 07/18/20 22:59 06:59 14:59 Intake Total 900 / 1320 750 / 750 Output Total 1500 / 1500 600 / 2100 500 / 500 Balance -600 / -180 -600 / -780 250 / 250 Weight last 48 hrs Weight 114.731 kg Weight 114.929 kg Physical Exam Const: COMMON NORMALS: no acute distress, patient oriented x3 and alert GENERAL APPEARANCE: cooperative and comfortable NUTRITIONAL APPEARANCE: obese morbidly obese ORIENTATION/CONSCIOUSNESS: Yes awake HENMT: COMMON NORMALS: normocephalic, atraumatic, hearing grossly normal bilaterally and moist oral mucous membranes HEAD & SCALP: normocephalic and atraumatic Eye: COMMON NORMALS: Equal, round and reactive pupils present, EOMs intact bilaterally and conjunctivae normal CONJUNCTIVA: Yes conjunctivae normal PUPIL: Yes Equal, round and reactive pupils present Neck/C-Spine: COMMON NORMALS: full ROM GENERAL: Yes normal visual inspection and Yes trachea midline Resp: COMMON NORMALS: normal respiratory effort, No retractions and No use of accessory muscles EFFORT & INSPECTION: Yes able to speak in complete sentences, Yes symmetric chest movement and Yes tachypneic (Intermittently) AUSCULTATION: diminished lung sounds OTHER: -air entry improving bilaterally, on 10-12 L oxy-mask Cardio: COMMON NORMALS: regular rate, regular rhythm, S1 normal heart sound present, S2 normal heart sound present and No murmurs present (Cardio) RATE: regular rate RHYTHM: regular rhythm HEART SOUNDS: S1 normal heart sound present and S2 normal heart sound present GI: COMMON NORMALS: Normal to inspection, nondistended, normoactive bowel sounds present, Soft to palpation and non-tender INSPECTION: Yes central obesity PALPATION: Yes Soft to palpation Extremity: COMMON NORMALS: normal to inspection, full ROM and no clubbing, cyanosis or edema; negative for no pedal edema Neuro: COMMON NORMALS: patient oriented x3, moves all extremities, no focal motor deficits, no sensory deficits noted and gait normal SENSORIUM/ORIENTATION: Yes alert Psych: COMMON NORMALS: mental status grossly normal, Normal thought process present, cooperative, normal affect and speech normal SPEECH: Yes normal speech THOUGHT PROCESS: Normal thought process present Skin: COMMON NORMALS: no rashes or lesions noted, no jaundice, no petechiae and no mottling GENERAL SKIN EXAM: no rashes or lesions noted Data : 07/18/20 04:20 07/17/20 04:45 Micro: Microbiology 07/17/20 14:15 Gram Stain - Final Sputum - Expectorated Sputum A&P Assessment and plan (1) Pneumonia due to COVID-19 virus: -Found to be positive for COVID-19 -Noted elevated inflammatory markers though overall trending down -Imaging consistent with bilateral interstitial pneumonitis worse on the left in background of emphysema. Repeat imaging unchanged -Increasing oxygen requirement, currently on10-12 oxy mask -Close monitoring of respiratory status -Continue supportive care including zinc, vitamin C, antitussives, inhaler treatments as needed, steroids -s/p 5-day course of Remdesevir -blood cx: prelim negative -MRSA, bacterial antigens, Legionella, influenza negative -Continue to monitor vital signs -Telemetry monitoring -Pulmonary toilet, incentive spirometry Status: Acute (2) Neutropenia: -Secondary to acute infection as previously normal -On neutropenic precautions, levels improving, continue daily labs -continue empiric Levaquin to cover for possible bacterial GI translocation (particularly Pseudomonas) Status: Resolved Qualifiers: Neutropenia type: due to infection Qualified Code(s): D70.3 - Neutropenia due to infection (3) Hypoxia: -Secondary to acute COVID-19 infection as noted above Status: Acute (4) Hypertension: -Continue to monitor vital signs -Continue oral antihypertensives Status: Chronic Qualifiers: Hypertension type: essential hypertension Qualified Code(s): I10 - Essential (primary) hypertension (5) GERD (gastroesophageal reflux disease): -continue PPI Status: Chronic Qualifiers: Esophagitis presence: without esophagitis Qualified Code(s): K21.9 - Gastro-esophageal reflux disease without esophagitis (6) Type 2 diabetes mellitus: -A1c-8.2 -Accuchecks, ISS, hypoglycemia precautions -hold oral hypoglycemia agents Status: Chronic Qualifiers: Diabetes mellitus complication status: without complication Diabetes mellitus data governance consultant insulin use: without skilled nursing use Qualified Code(s): E11.9 - Type 2 diabetes mellitus without complications (7) Hyponatremia: -Sodium normalized Status: Resolved Additional A&P Information -Morbid obesity: BMI-43 kg/m2 -GI ppx with PPI -DVT ppx with Eliquis -Dispo: home -Code status: FULL code -Prefers to update her family herself. Criteria for discharge would be decreased oxygen requirement, hemodynamic stability. Attestations Medical Necessity Statement*: Patient requires hospitalization for continued management of COVID-19 pnemonia, continued high oxygen requirement. Time Spent in Patient Care: 16 - 35 minutes (>than 50% of time spent in counselling and/or direct pt care on unit) . Coding Level of Care Code Acute [employer] Maker for g Fwd Exam Comprehensive Diagnoses Pneumonia due to COVID-19 virus U07.1; J12.89 Neutropenia D70.3 Neutropenia type: due to infection Hypoxia R09.02 Hypertension I10 Hypertension type: essential hypertension GERD (gastroesophageal reflux disease) K21.9 Esophagitis presence: without esophagitis Type 2 diabetes mellitus E11.9 Diabetes mellitus complication status: without complication Diabetes mellitus data governance consultant insulin use: without skilled nursing use Hyponatremia E87.1
[2020-07-18 15:59] LABS: Glucose Point of Care 335 mg/dL (70-110)
[2020-07-18 22:14] LABS: Glucose Point of Care 403 mg/dL (70-110)
[2020-07-19] VITALS (24 sets, daily range): BP systolic 89–141; BP diastolic 58–98; PULSE 70–124; RESP 14–29; TEMP 35.9–37.2; O2SAT 77–97
[2020-07-19] MEDS: buPROPion XL (24 HR) 150 mg Tablet PO (06:37)
[2020-07-19 07:42] LABS: Glucose Point of Care 100 mg/dL (70-110)
[2020-07-19] MEDS: atorvastatin 40 mg Tablet PO (09:05)
[2020-07-19] MEDS: apixaban 5 mg Tablet PO ×2 (09:05→17:40)
[2020-07-19] MEDS: guaiFENesin 600 mg Tablet PO ×2 (09:05→17:41)
[2020-07-19] MEDS: ascorbic acid 500 mg Tablet PO (09:05)
[2020-07-19] MEDS: CELEcoxib 200 mg Capsule PO (09:05)
[2020-07-19] MEDS: lisinopril 10 mg Tablet PO (09:06)
[2020-07-19] MEDS: zinc gluconate 50 mg Tablet PO (09:06)
[2020-07-19] MEDS: pantoprazole DR 40 mg Tablet PO (09:06)
[2020-07-19] MEDS: dexamethasone 4 mg/mL INJ 6 MG IVP (10:36)
[2020-07-19 10:47] LABS: Glucose Point of Care 124 mg/dL (70-110)
--- NOTE | 2020-07-19 11:36 | PC.NURSE ---
Pt washed up this am with warm soapy water and a warm shower cap, pt stated she felt good enough to walk the halls. Pt was placed on 12L NC, with ambulation, pt tolerated well with no issues. Pt placed on 10L oxymask when pt got back into bed per pt request. Sheets changed, BSC emptied, and pt stated she felt 10x better with a walk and cleaning herself up.
--- NOTE | 2020-07-19 15:33 | PM.PN ---
Subjective Subjective: Interval history: Oxygen requirement remains high at 10 L, otherwise hemodynamically stable and afebrile. On day 6 of IV steroids. Has been ambulating in the hallway throughout the day. With deep breathing, use of incentive spirometry, saturation improves. Cough persists with minimal expectoration. Medications: Reviewed: Yes Medication Review Details: Active Medications Generic Name Dose Route Start Last Admin Trade Name Freq PRN Reason Stop Dose Admin Acetaminophen 650 mg 07/13/20 18:36 Tylenol PO Q6H PRN Mild/Mod Pain Or Temp >/= 101 Albuterol Sulfate 2 puff 07/13/20 23:57 07/18/20 08:35 Ventolin INHALATION 2 puff Q4H.RESPIRATORY P RN Administration SHORTNESS OF ANSELMO TH Amitriptyline HCl 30 mg 07/17/20 21:00 07/18/20 21:52 Elavil PO 30 mg BEDTIME MARIANA Administration Apixaban 5 mg 07/15/20 18:00 07/19/20 09:05 Eliquis PO 5 mg BID MARIANA Administration Ascorbic Acid 500 mg 07/14/20 09:00 07/19/20 09:05 Vitamin C PO 500 mg DAILY MARIANA Administration Atorvastatin Calci um 40 mg 07/14/20 09:00 07/19/20 09:05 Lipitor PO 40 mg DAILY MARIANA Administration Bisacodyl 10 mg 07/13/20 18:36 Dulcolax PO DAILY PRN CONSTIPATION Bupropion HCl 150 mg 07/14/20 06:00 07/19/20 06:50 Wellbutrin Xl (2 4 Hr) PO Not Given QAM MARIANA Calcium Carbonate 500 mg 07/18/20 11:28 Tums PO Q4H PRN INDIGESTION Celecoxib 200 mg 07/14/20 09:00 07/19/20 09:05 Celebrex PO 200 mg DAILY MARIANA Administration Cyclobenzaprine HC l 10 mg 07/13/20 18:36 Flexeril PO TID PRN muscle spasm Dexamethasone 6 mg 07/14/20 10:00 07/19/20 10:36 Decadron IVP 6 mg Q24H MARIANA Administration Dextrose 25 ml 07/13/20 18:36 D50w IVP ONCE PRN hypoglycemia prot ocol Protocol Dextrose 50 ml 07/13/20 18:36 D50w IVP PRN PRN hypoglycemia prot ocol Protocol Dextrose 25 ml 07/18/20 22:43 D50w IVP ONCE PRN hypoglycemia prot ocol Protocol Dextrose 50 ml 07/18/20 22:43 D50w IVP PRN PRN hypoglycemia prot ocol Protocol Fluticasone Propio pete 1 spray 07/16/20 18:00 07/19/20 10:46 Flonase NASAL Not Given BID MARIANA Glucagon 1 mg 07/13/20 18:36 Glucagen IM ONCE PRN Adult Acute Hypog lycemia Prot. Protocol Glucagon 1 mg 07/18/20 22:43 Glucagen IM ONCE PRN Adult Acute Hypog lycemia Prot. Protocol Guaifenesin 600 mg 07/17/20 21:00 07/19/20 09:05 Mucinex PO 600 mg BID MARIANA Administration Dextrose 500 mls @ 100 mls /hr 07/13/20 18:36 D5w IV ONCE PRN Adult Acute Hypog lycemia Prot Protocol Dextrose 500 mls @ 100 mls /hr 07/18/20 22:43 D5w IV ONCE PRN Adult Acute Hypog lycemia Prot Protocol Insulin Aspart 0 unit 07/13/20 18:36 07/19/20 11:34 Novolog SUBCUT Not Given WM&BEDTIME MARIANA Protocol Insulin Detemir 8 unit 07/18/20 23:00 07/19/20 09:05 Levemir SUBCUT 8 unit BID MARIANA Administration Lactulose 10 gm 07/13/20 18:36 Constulose PO DAILY PRN CONSTIPA Lanolin 1 applic 07/15/20 14:52 07/18/20 09:06 Lanolin Oint TOPICAL 1 applic PRN PRN Administration DRYNESS Lanolin 1 applic 07/16/20 16:55 Lanolin Oint TOPICAL PRN PRN DRYNESS Lisinopril 10 mg 07/14/20 09:00 07/19/20 09:06 Prinivil PO 10 mg DAILY MARIANA Administration Non-Formulary Medi cation 1 tab 07/14/20 09:00 07/19/20 09:06 Vitamin B Comple x PO Not Given DAILY MARIANA Ondansetron HCl 4 mg 07/13/20 18:36 07/18/20 09:06 Zofran IVP 4 mg Q8H PRN Administration vomiting, or N/V if npo Pantoprazole Sodiu m 40 mg 07/14/20 09:00 07/19/20 09:06 Protonix PO 40 mg DAILY MARIANA Administration Fluticasone/Sal[place] delfin 1 puff 07/13/20 20:00 07/19/20 11:20 Advair Diskus 25 0-50 INHALATION 1 puff BID.RESPIRATORY S CH Administration Sodium Chloride 1 spray 07/16/20 15:44 07/18/20 09:06 [place] Nasal Spra y NASAL 2 inhalation PRN PRN Administration DRYNESS Tiotropium [place] 18 mcg 07/14/20 08:00 07/19/20 13:40 Spiriva INHALATION Not Given DAILY.RESPIRATORY MARIANA Zinc Gluconate 50 mg 07/14/20 09:00 07/19/20 09:06 Zinc Gluconate PO 50 mg DAILY MARIANA Administration clarithromycin Allergy (Verified 07/09/20 13:15) ADR-Diarrhea codeine Allergy (Verified 07/09/20 13:15) ALGY-Hives fentanyl [From Duragesic] Allergy (Verified 07/09/20 13:15) ALGY-Hives levofloxacin [From Levaquin] Allergy (Verified 07/13/20 16:32) Unknown morphine Allergy (Verified 07/09/20 13:15) ALGY-Difficulty Breathing paroxetine [From Paxil] Allergy (Verified 07/09/20 13:15) Unknown Penicillins Allergy (Verified 07/09/20 13:15) ALGY-Anaphylaxis sertraline [From Zoloft] Allergy (Verified 07/09/20 13:15) Unknown tramadol Allergy (Verified 07/09/20 13:15) Unknown venlafaxine [From Effexor] Allergy (Verified 07/09/20 13:15) Unknown Vitals/I&O/Wt Last Vital Signs Temp 96.7 F L 07/19/20 11:00 Pulse 108 H 07/19/20 14:00 Resp 17 07/19/20 14:00 BP 116/66 07/19/20 14:00 Pulse Ox 95 07/19/20 12:00 07/19/20 07/19/20 07/19/20 06:59 14:59 22:59 Intake Total 2009 960 / 960 Output Total 425 / 1350 1999 Balance -5 / 660 -1040 / -1040 Weight last 48 hrs Weight 114.731 kg Physical Exam Const: COMMON NORMALS: no acute distress, patient oriented x3 and alert GENERAL APPEARANCE: cooperative and comfortable NUTRITIONAL APPEARANCE: obese morbidly obese ORIENTATION/CONSCIOUSNESS: Yes awake HENMT: COMMON NORMALS: normocephalic, atraumatic, hearing grossly normal bilaterally and moist oral mucous membranes HEAD & SCALP: normocephalic and atraumatic Eye: COMMON NORMALS: Equal, round and reactive pupils present, EOMs intact bilaterally and conjunctivae normal CONJUNCTIVA: Yes conjunctivae normal PUPIL: Yes Equal, round and reactive pupils present Neck/C-Spine: COMMON NORMALS: full ROM GENERAL: Yes normal visual inspection and Yes trachea midline Resp: COMMON NORMALS: normal respiratory effort, No retractions and No use of accessory muscles EFFORT & INSPECTION: Yes able to speak in complete sentences, Yes symmetric chest movement and Yes tachypneic (Intermittently) AUSCULTATION: diminished lung sounds OTHER: -air entry improving bilaterally, on 10 HFNC Cardio: COMMON NORMALS: regular rate, regular rhythm, S1 normal heart sound present, S2 normal heart sound present and No murmurs present (Cardio) RATE: regular rate RHYTHM: regular rhythm HEART SOUNDS: S1 normal heart sound present and S2 normal heart sound present GI: COMMON NORMALS: Normal to inspection, nondistended, normoactive bowel sounds present, Soft to palpation and non-tender INSPECTION: Yes central obesity PALPATION: Yes Soft to palpation Extremity: COMMON NORMALS: normal to inspection, full ROM and no clubbing, cyanosis or edema; negative for no pedal edema Neuro: COMMON NORMALS: patient oriented x3, moves all extremities, no focal motor deficits, no sensory deficits noted and gait normal SENSORIUM/ORIENTATION: Yes alert Psych: COMMON NORMALS: mental status grossly normal, Normal thought process present, cooperative, normal affect and speech normal SPEECH: Yes normal speech THOUGHT PROCESS: Normal thought process present Skin: COMMON NORMALS: no rashes or lesions noted, no jaundice, no petechiae and no mottling GENERAL SKIN EXAM: no rashes or lesions noted Data : 07/18/20 04:20 07/17/20 04:45 Micro: Microbiology 07/17/20 14:15 Gram Stain - Final Sputum - Expectorated Sputum Sputum Culture - Preliminary 07/13/20 23:18 Blood Culture - Final Blood NO GROWTH AFTER 5 DAYS 07/13/20 22:00 Blood Culture - Final Blood NO GROWTH AFTER 5 DAYS A&P Assessment and plan (1) Pneumonia due to COVID-19 virus: -Found to be positive for COVID-19 -Noted elevated inflammatory markers though overall trending down -Imaging consistent with bilateral interstitial pneumonitis worse on the left in background of emphysema. Repeat imaging unchanged -Increasing oxygen requirement, currently on10-12 oxy mask -Close monitoring of respiratory status -Continue supportive care including zinc, vitamin C, antitussives, inhaler treatments as needed, steroids (day 6) -s/p 5-day course of Remdesevir -blood cx: prelim negative -MRSA, bacterial antigens, Legionella, influenza negative -Continue to monitor vital signs -Telemetry monitoring -Pulmonary toilet, incentive spirometry Status: Acute (2) Neutropenia: -Secondary to acute infection as previously normal -On neutropenic precautions, levels improving, continue daily labs -continue empiric Levaquin to cover for possible bacterial GI translocation (particularly Pseudomonas) Status: Resolved Qualifiers: Neutropenia type: due to infection Qualified Code(s): D70.3 - Neutropenia due to infection (3) Hypoxia: -Secondary to acute COVID-19 infection as noted above Status: Acute (4) Hypertension: -Continue to monitor vital signs -Continue oral antihypertensives Status: Chronic Qualifiers: Hypertension type: essential hypertension Qualified Code(s): I10 - Essential (primary) hypertension (5) GERD (gastroesophageal reflux disease): -continue PPI Status: Chronic Qualifiers: Esophagitis presence: without esophagitis Qualified Code(s): K21.9 - Gastro-esophageal reflux disease without esophagitis (6) Type 2 diabetes mellitus: -A1c-8.2 -Accuchecks, ISS, hypoglycemia precautions -hold oral hypoglycemia agents Status: Chronic Qualifiers: Diabetes mellitus complication status: without complication Diabetes mellitus detention insulin use: without detention use Qualified Code(s): E11.9 - Type 2 diabetes mellitus without complications (7) Hyponatremia: -Sodium normalized Status: Resolved Additional A&P Information -Morbid obesity: BMI-43 kg/m2 -GI ppx with PPI -DVT ppx with Eliquis -Dispo: home -Code status: FULL code -Prefers to update her family herself. Criteria for discharge would be decreased oxygen requirement, hemodynamic stability. Attestations Medical Necessity Statement*: Patient requires hospitalization for continued management of COVID-19 infection with persistent hypoxia and high oxygen requirement. Time Spent in Patient Care: 16 - 35 minutes (>than 50% of time spent in counselling and/or direct pt care on unit). Coding Level of Care Code Acute [employer]ato Chip Frier for Chg Fwd Exam Comprehensive Diagnoses Pneumonia due to COVID-19 virus U07.1; J12.89 Neutropenia D70.3 Neutropenia type: due to infection Hypoxia R09.02 Hypertension I10 Hypertension type: essential hypertension GERD (gastroesophageal reflux disease) K21.9 Esophagitis presence: without esophagitis Type 2 diabetes mellitus E11.9 Diabetes mellitus complication status: without complication Diabetes mellitus vending machine collector insulin use: without vending machine collector use Hyponatremia E87.1
[2020-07-19 17:08] LABS: Glucose Point of Care 362 mg/dL (70-110)
[2020-07-19] MEDS: fluticasone nasal spray 16gm Btl 1 SPRAY NASAL (17:46)
--- NOTE | 2020-07-19 18:16 | PC.NURSE ---
pt ambulated 3x this shift without any difficulty. OXY MASK was in use during ambulating in [place] at 12 L. Pt blood sugars have stayed within normal range for breakfast and lunch and did not require coverage, dinner time she required 16 units. pt ordered out for dinner and refused all meals from cafeteria for 07/20/20 stated she would order out and her son brought her food today to snack on so she would be fine.
[2020-07-19 21:53] LABS: Glucose Point of Care 315 mg/dL (70-110)
[2020-07-19] MEDS: ergocalciferol (vitamin D2) 50,000 Unit Capsule 50000 UNIT PO (21:57)
[2020-07-20] VITALS (14 sets, daily range): BP systolic 94–135; BP diastolic 57–94; PULSE 73–111; RESP 15–23; TEMP 36.2–36.4; O2SAT 84–97
--- NOTE | 2020-07-20 06:31 | PC.NURSE ---
PT requested nurse did not administer scheduled bupropion XL 150 mg PO, Pt stated that she always takes this medication with breakfast at home and would like her medication administered with her meal tray. Will pass on to dayshift nursing staff .
[2020-07-20 08:09] LABS: Glucose Point of Care 176 mg/dL (70-110)
[2020-07-20] MEDS: apixaban 5 mg Tablet PO (08:29)
[2020-07-20] MEDS: pantoprazole DR 40 mg Tablet PO (08:29)
[2020-07-20] MEDS: lisinopril 10 mg Tablet PO (08:29)
[2020-07-20] MEDS: zinc gluconate 50 mg Tablet PO (08:29)
[2020-07-20] MEDS: atorvastatin 40 mg Tablet PO (08:29)
[2020-07-20] MEDS: ascorbic acid 500 mg Tablet PO (08:29)
[2020-07-20] MEDS: guaiFENesin 600 mg Tablet PO (08:29)
[2020-07-20] MEDS: buPROPion XL (24 HR) 150 mg Tablet PO (08:31)
[2020-07-20] MEDS: CELEcoxib 200 mg Capsule PO (08:31)
[2020-07-20] MEDS: fluticasone nasal spray 16gm Btl 1 SPRAY NASAL (08:32)
[2020-07-20] MEDS: albuterol 8 gm MDI 2 PUFF INHALATION (09:52)
[2020-07-20] MEDS: dexamethasone 4 mg/mL INJ 6 MG IVP (10:31)
[2020-07-20] MEDS: ondansetron 2 mg/ML SDV 2 mL 4 MG IVP (11:00)
[2020-07-20 12:03] LABS: Glucose Point of Care 186 mg/dL (70-110)
--- NOTE | 2020-07-20 13:12 | P.DS_ITS ---
Discharge Providers Date of Admission: 07/13/20 15:48 Date of Discharge: July 20, 2020 Attending Provider at Admission: Eduardo West MD Attending Provider at Discharge: Chhaya Jacobs MD Consults: None Primary Care Provider: Rupal Charles Diagnoses at Discharge Discharge Diagnosis (1) Pneumonia due to COVID-19 virus: Status: Acute Problem details: -Found to be positive for COVID-19 -Noted elevated inflammatory markers though overall trending down -Imaging consistent with bilateral interstitial pneumonitis worse on the left in background of emphysema. Repeat imaging unchanged -Increasing oxygen requirement, currently on10-12 oxy mask -Close monitoring of respiratory status -Continue supportive care including zinc, vitamin C, antitussives, inhaler treatments as needed, steroids (day 7) -s/p 5-day course of Remdesevir -blood cx: prelim negative -MRSA, bacterial antigens, Legionella, influenza negative -Continue to monitor vital signs -Telemetry monitoring -Pulmonary toilet, incentive spirometry (2) Neutropenia: Status: Resolved Problem details: -Secondary to acute infection as previously normal -covered with empiric Levaquin Qualifiers: Neutropenia type: due to infection Qualified Code(s): D70.3 - Neutropenia due to infection (3) Hypoxia: Status: Acute Problem details: -Secondary to acute COVID-19 infection as noted above -per home oxygen evaluation, qualifies for 2 L NC (4) Hypertension: Status: Chronic Problem details: -Continue to monitor vital signs -Continue oral antihypertensives Qualifiers: Hypertension type: essential hypertension Qualified Code(s): I10 - Essential (primary) hypertension (5) GERD (gastroesophageal reflux disease): Status: Chronic Problem details: -continue PPI Qualifiers: Esophagitis presence: without esophagitis Qualified Code(s): K21.9 - Gastro-esophageal reflux disease without esophagitis (6) Type 2 diabetes mellitus: Status: Chronic Problem details: -A1c-8.2 -Accuchecks, ISS, hypoglycemia precautions -hold oral hypoglycemia agents Qualifiers: Diabetes mellitus jail insulin use: without jail use Diabetes mellitus complication status: without complication Qualified Code(s): E11.9 - Type 2 diabetes mellitus without complications (7) Hyponatremia: Status: Resolved Other Information Additional DC diagnoses/information: -Morbid obesity: BMI-43 kg/m2 Reason for Visit Reason for Visit: COVID; SOB Hospital Course Hospital Course: Patient was admitted to the viral ICU after having been found positive for COVID-19. Due to severity of infection and need for supplemental oxygen she was started on remdesevir of which she has completed a 5-day course. She was also treated with IV steroids, supportive care including zinc, vitamin C, breathing treatments as needed, antitussives, pulmonary toilet, incentive spirometry. She initially required consistently high oxygen levels and seemed to improve rather slowly even with the aforementioned treatment. However over the past 24 to 36 hours she has improved significantly with weaning down oxygen requirement. As she is not oxygen dependent at baseline she has had a home oxygen evaluation done prior to discharge and qualifies for 2 L. I anticipate that she will continue to recover appropriately over the next several days. She is instructed on need to continue to self monitor her symptoms and to seek medical attention immediately should she have worsening symptoms, persistent shortness of breath, cough, fever, inability to tolerate oral intake. She is also instructed on need to continue with self-isolation, social distancing and mask wearing. She has received a total of 7 days of IV steroids and does not wish to be discharged on an oral taper as she has a very difficult time tolerating oral steroids. While here she was covered with insulin and her oral hypoglycemic agents were held. She can resume her oral medications on her return home. She was initially neutropenic but her levels have subsequently normalized and she was covered with empiric antibiotic therapy. Sodium levels were also noted to be low but have also since normalized. She has been quite motivated to ambulate and do her deep breathing exercises as well as use incentive spirometry. She is encouraged to continue this on her transition home. Physical Exam Const: COMMON NORMALS: no acute distress, patient oriented x3 and alert G ENERAL APPEARANCE: cooperative and comfortable NUTRITIONAL APPEARANCE: obese morbidly obese ORIENTATION/CONSCIOUSNESS: Yes awake HENMT: COMMON NORMALS: normocephalic, atraumatic, hearing grossly normal bilaterally and moist oral mucous membranes HEAD & SCALP: normocephalic and atraumatic Eye: COMMON NORMALS: Equal, round and reactive pupils present, EOMs intact bilaterally and conjunctivae normal CONJUNCTIVA: Yes conjunctivae normal PUPIL: Yes Equal, round and reactive pupils present Neck/C-Spine: COMMON NORMALS: full ROM GENERAL: Yes normal visual inspection and Yes trachea midline Resp: COMMON NORMALS: normal respiratory effort, No retractions and No use of accessory muscles EFFORT & INSPECTION: Yes able to speak in complete sentences, Yes symmetric chest movement and Yes tachypneic (Intermittently) AUSCULTATION: diminished lung sounds OTHER: -air entry improving bilaterally, on 2 L NC Cardio: COMMON NORMALS: regular rate, regular rhythm, S1 normal heart sound present, S2 normal heart sound present and No murmurs present (Cardio) RATE: regular rate RHYTHM: regular rhythm HEART SOUNDS: S1 normal heart sound present and S2 normal heart sound present GI: COMMON NORMALS: Normal to inspection, nondistended, normoactive bowel sounds present, Soft to palpation and non-tender INSPECTION: Yes central obesity PALPATION: Yes Soft to palpation Extremity: COMMON NORMALS: normal to inspection, full ROM and no clubbing, cyanosis or edema; negative for no pedal edema Neuro: COMMON NORMALS: patient oriented x3, moves all extremities, no focal motor deficits, no sensory deficits noted and gait normal SENSORIUM/ORIENTATION: Yes alert Psych: COMMON NORMALS: mental status grossly normal, Normal thought process present, cooperative, normal affect and speech normal SPEECH: Yes normal speech THOUGHT PROCESS: Normal thought process present Skin: COMMON NORMALS: no rashes or lesions noted, no jaundice, no petechiae and no mottling GENERAL SKIN EXAM: no rashes or lesions noted Discharge Data Data Completed and Pending: Completed Studies During Hospitalization Category Date Time Status CT angio chest PE protcl 24599 Rout ine Cat Scan 07/13/20 17:41 Completed XR chest 1V candace ble 48046 Q48H Exams 07/14/20 06:00 Completed XR chest 1V candace ble 96545 Q48H Exams 07/16/20 06:00 Completed XR chest 1V candace ble 12704 Q48H Exams 07/18/20 06:00 Completed XR chest 1V candace ble [id number] Stat Exams 07/13/20 13:41 Completed Labs from last 24 hours 07/20/20 07/20/20 07/19/20 11:45 07:48 21:50 POC Glucose 186 176 315 07/19/20 16:42 POC Glucose 362 Vitals: Last Vital Signs Temp 97.3 F L 07/19/20 20:00 Pulse 91 07/20/20 09:53 Resp 18 07/20/20 09:53 BP 135/83 07/20/20 06:00 Pulse Ox 93 07/20/20 09:53 Discharge Plan Discharge Patient Disposition: Home Condition: Stable Prescriptions: New Advair Diskus 250-50 mcg/dose Blister With Device 1 puff inhalation BID.RESPIRATORY Qty: 60 RF: 0 Vitamin C 500 mg Tablet 500 mg PO DAILY Qty: 30 RF: 0 Spiriva with HandiHaler 18 mcg Capsule, W/Inhalation Device 18 mcg inhalation DAILY.RESPIRATORY Qty: 30 RF: 0 zinc gluconate 50 mg Tablet 50 mg PO DAILY Qty: 30 RF: 0 Continued ergocalciferol (vitamin D2) [Vitamin D2] 1,250 mcg (50,000 unit) capsule 50,000 unit PO .twice weekly Qty: 24 RF: 0 cyclobenzaprine 10 mg tablet 10 mg PO TID PRN (Reason: muscle spasm) Qty: 270 RF: 1 celecoxib 200 mg capsule 200 mg PO DAILY Qty: 90 RF: 1 bupropion HCl [Wellbutrin XL] 150 mg tablet extended release 24 hr 150 mg PO QAM Qty: 90 RF: 1 glyburide 2.5 mg tablet 2.5 mg PO DAILY Qty: 90 RF: 1 lisinopril 10 mg tablet 10 mg PO DAILY Qty: 90 RF: 1 metformin 500 mg tablet 500 mg PO TID Qty: 180 RF: 1 omeprazole 40 mg capsule,delayed release(DR/EC) 40 mg PO DAILY Qty: 90 RF: 1 albuterol sulfate [Ventolin HFA] 90 mcg/actuation HFA aerosol inhaler 2 puff INHALATION QID PRN (Reason: shortness of breath or wheezing) Qty: 18 RF: 0 Farxiga 10 mg tablet 10 mg PO QAM Qty: 90 RF: 0 rosuvastatin [Crestor] 10 mg tablet 10 mg PO DAILY Qty: 30 RF: 5 vitamin B complex Tablet 1 tab PO DAILY RF: 0 Changed amitriptyline 10 mg tablet 30 mg PO BEDTIME Qty: 270 RF: 1 Discharge Orders: Discharge Order (Routine); Ordered 07/20/20 Ordered By: Chhaya Jacobs Other Ambulatory Orders: DME: Oxygen (Order) Location: None Selected Ordered By: Chhaya Jacobs Referrals: Rupal Charles, SHEARING SUPERVISOR [Nurse Practitioner] - 4-7 days (Post hospital discharge follow-up. Patient treated for COVID-19 infection, received Remdesevir and IV steroids. Discharged on oxygen) Discharge Diet: Diabetic Discharge Activity: Increase activity as tolerated and Oxygen as instructed Activity Restrictions/Additional Instructions: -Please continue to monitor your symptoms at home. If noted persistent low oxygen levels, fever, inability to tolerate oral intake,, significantly elevated or low blood pressure, or general worsening in her clinical condition, please seek medical attention immediately -Please continue self-isolation precautions on return home, social distancing and mask wearing Discharge Attestations Time Spent in Discharge Care*: greater than 30 min Specific Discharge Activities: Specific discharge activities: educating patient, discussing with pillowcase cleaner/social workers/dc planners, documenting/other paperwork and evaluating patient/reviewing data Status at Discharge: Cognitive status at discharge: cognitively intact , Behavioral status at discharge: cooperative and independent in ADL's , Functional status at discharge: independent ambulation Overall status at discharge: patient is progressing back to baseline Quality Metrics Clinical Quality Measures During this hospital stay, did patient experience: None Coding Level of Care Code Acute Language Specialist for [facility] Fwd Diagnoses Pneumonia due to COVID-19 virus U07.1; J12.89 Neutropenia D70.3 Neutropenia type: due to infection Hypoxia R09.02 Hypertension I10 Hypertension type: essential hypertension GERD (gastroesophageal reflux disease) K21.9 Esophagitis presence: without esophagitis Type 2 diabetes mellitus E11.9 Diabetes mellitus intermediate manager insulin use: without intermediate manager use Diabetes mellitus complication status: without complication Hyponatremia E87.1
--- NOTE | 2020-07-20 15:35 | PC.NURSE ---
Discharge instructions provided and discussed. Pt declined care notes. Pt had hand bag, electronics and other bags of personal items with her, and the home O2. Pt discharged
--- NOTE | 2020-07-24 11:00 | PC.SOCIAL ---
Spoke with the patient on the phone, she stated that she was still short of breath but she did just come back from the bathroom. when asked if she had an appointment set up to see PCP Rupal TRACY, she stated that she would but they are not seeing patients right now due to being quarantined. I called and spoke with stormy at the [facility] clinic, she stated that they are seeing patients and that the patient could be seen at 2:20 PM today. I called the patient back and informed her of the appointment, she stated that she could make it, I informed Stormy. While speaking to Stormy, we discussed ways to stay protected against the COVID 19 and ways to prevent the spread, We talked about proper washing of hands and cleaning surfaces, not touching her face, masking up, social distancing, and turning head when coughing or sneezing. We also touched on signs and symptoms to watch out for such as; blue face or lips, shortness of breath, trouble breathing, trouble waking up or confusion, chest pain lasting more than 5 minutes, fever of 204 or higher, confusion or trouble waking up. Also discussed was ways to keep her immune system up which includes eating and drinking right, keeping up with immunizations, going regularly to her doctor and avoiding stress. We also spoke about Plasma donation, she is interested, I will send her information about it.
--- NOTE | 2020-07-30 08:53 | PC.SOCIAL ---
Received a phone call from patient stating that she thought she was supposed to get a HH nurse to come out and see her and she spoke with someone last week, but she has not heard from anyone since. I explained that we will need to reach out to her PCP and get an order for HH, then fax it to a HH company. She did follow up with Rupal Charles as she was asked to and patient states they referred her to pulmonology of which she has her first appointment the first part of August. She would like a follow up CXR before then as she would hope she could come off the oxygen before her appointment with pulmonology. She states it has been 28 days since first testing positive for COVID and 10 days post hospital stay and she would like to see what her lung status is by CXR. I explained that it is likely that her pulmonology appointment will not be moved forward, however we could make contact with her PCP office and they could potentially order a CXR if they deemed it appropriate. As far as HH goes, patient does not have a preference of which HH company to choose. She is fine to [place] [facility] [place] choice and [facility] as second choice. Will reach out to Ethan at [facility] to see if they are in network with patient's insurance and if so, will then reach out to patient's PCP office to see about obtaining an order for HH per patient's request.
--- NOTE | 2020-07-30 09:23 | PC.SOCIAL ---
Spoke with Ethan at [facility]. She states they are in network with patient's insurance, however it is still showing a out of pocket expense of $[phone] that still needs to be met. All the bills from hospital stay have not yet been submitted, so it's likely that patient's out of pocket amount will be met, however of course no one can confirm this will be met either. Spoke with patient and explained this to her. She would like to proceed with seeing if HH can be ordered. Called Ethan back and let her know this. She states she will reach out to Rupal Charles's office and obtain HH orders and also ask about the follow up CXR that the patient is requesting. Called patient back to let her know Ethan will be taking over from here and provided patient with the phone number for [facility]. Also encouraged patient to call SS back with any other questions or concerns as well and we will be happy to try and help. She appreciates this.
== END 2020-07-20 15:35 | disposition home or self-care (01) | DRG 177 ==
LOC: ER 15:59 → ICU 16:17
PROVIDERS: Emergency Medicine; Admitting Provider Student in an Organized Health Care Education/Training Program; Visit Provider Family Medicine
DX: U07.1 COVID-19 (principal); J12.89 Other viral pneumonia; E87.1 Hypo-osmolality and hyponatremia; Z68.41 Body mass index [BMI] 40.0-44.9, adult; D70.9 Neutropenia, unspecified; I10 Essential (primary) hypertension; R09.02 Hypoxemia; E11.9 Type 2 diabetes mellitus without complications; K21.9 Gastro-esophageal reflux disease without esophagitis; Z79.84 Long term (current) use of oral hypoglycemic drugs; E66.01 Morbid (severe) obesity due to excess calories; E78.5 Hyperlipidemia, unspecified; E55.9 Vitamin D deficiency, unspecified; G47.00 Insomnia, unspecified; Z87.891 Personal history of nicotine dependence; E86.0 Dehydration
CPT/HCPCS: 12345; 36415; 36416; 71045; 71275; 80053; 80061; 81001; 82436; 82550; 82728; 82962; 83036; 83540; 83550; 83605; 83615; 83880; 84133; 84145; 84300; 84443; 85025; 85378; 85384; 86140; 86403; 87040; 87070; 87205; 87449; 87641; 87804; 93005; 94640; 94664; 96372; 96375; 99284; J1100; J1815; J2405; J3535; J7030; Q9967

== ENCOUNTER → 2020-08-02 11:05 | Outpatient (BNVA) | payer BC, SELFPAY | PROVIDERS: PCP Nurse Practitioner Family; Visit Provider Nurse Practitioner Family | DX: R05 Cough (principal) | CPT/HCPCS: 71046 ==

== ENCOUNTER → 2020-08-10 13:33 | Outpatient (BNVA) | payer BC, SELFPAY | PROVIDERS: PCP Nurse Practitioner Family | DX: R09.02 Hypoxemia (principal) | CPT/HCPCS: 87635 ==

== ENCOUNTER 2020-08-15 09:42 | Outpatient (CLI) | payer BC, SELFPAY ==
--- NOTE | 2020-08-15 13:49 | PFTS_ITS ---
Date of Study:08/15/20 Date of Dictation: MECHANICS: Forced vital capacity (FVC) is normal. Forced expiratory volume in one second (FEV1) is normal. FEV1/FVC is normal. FLOW VOLUME LOOP: Normal. LUNG VOLUMES: Total lung capacity (TLC) is normal. Residual volume (RV) is reduced. DIFFUSING CAPACITY FOR CARBON MONOXIDE: Mild reduced. INTERPRETATION: The pulmonary function tests are normal. Isolated reduction of residual volume could be secondary to obesity. However, early interstitial lung disease cannot be ruled out. Gas exchange (DLCO) is mildly reduced. MTDD
== END 2020-08-15 09:43 | disposition home or self-care (01) ==
LOC: RT 09:45
PROVIDERS: PCP Nurse Practitioner Family; Visit Provider Internal Medicine Critical Care Medicine
DX: J43.9 Emphysema, unspecified (principal)
CPT/HCPCS: 94010; 94726; 94729

== ENCOUNTER → 2020-11-21 16:12 | Outpatient (BNVA) | payer BC, SELFPAY | PROVIDERS: PCP Nurse Practitioner Family; Visit Provider Nurse Practitioner Family | DX: E11.9 Type 2 diabetes mellitus without complications (principal); E55.9 Vitamin D deficiency, unspecified; L02.211 Cutaneous abscess of abdominal wall | CPT/HCPCS: 80053; 80061; 82306; 83036; 84443; 85025 ==

== ENCOUNTER → 2021-05-30 12:02 | Outpatient (BNVA) | payer BC, SELFPAY | PROVIDERS: PCP Nurse Practitioner Family; Visit Provider Nurse Practitioner Family | DX: M79.642 Pain in left hand (principal); M25.532 Pain in left wrist; R09.02 Hypoxemia; E55.9 Vitamin D deficiency, unspecified; E11.9 Type 2 diabetes mellitus without complications; I10 Essential (primary) hypertension; K21.9 Gastro-esophageal reflux disease without esophagitis | CPT/HCPCS: 73110; 73130; 80053; 80061; 82043; 82306; 83036; 84443; 85025 ==

== ENCOUNTER 2021-06-11 15:14 | Outpatient (CLI) | payer BC, SELFPAY | END 2021-06-11 15:15 | disposition home or self-care (01) | LOC: SPT 15:14 | PROVIDERS: PCP Nurse Practitioner Family; Visit Provider Orthopaedic Surgery | DX: Z46.89 Encounter for fitting and adjustment of other specified devices (principal); M18.12 Unilateral primary osteoarthritis of first carpometacarpal joint, left hand | CPT/HCPCS: 97760; L3924 ==

== ENCOUNTER → 2021-07-16 16:04 | Outpatient (BNVA) | payer BC, SELFPAY | PROVIDERS: PCP Nurse Practitioner Family; Visit Provider Nurse Practitioner Family | DX: M25.561 Pain in right knee (principal); M17.11 Unilateral primary osteoarthritis, right knee | CPT/HCPCS: 73562 ==

== ENCOUNTER → 2021-07-31 14:39 | Outpatient (BNVA) | payer BC, SELFPAY | PROVIDERS: PCP Nurse Practitioner Family; Visit Provider Nurse Practitioner Family | DX: Z20.822 Contact with and (suspected) exposure to COVID-19 (principal); I51.7 Cardiomegaly | CPT/HCPCS: 71046; 80053; 85025; 87635 ==

== ENCOUNTER 2021-11-04 10:00 | Outpatient (CLI) | payer BC, SELFPAY ==
--- NOTE | 2021-11-04 10:03 | USCV_ITS ---
Maria G Khan Age: 66 Gender: F : 1955 Exam Date: 11/04/2021 10:25 Ordering Phys: Rupal Charles PUNCH MOLDER PUNCH MOLDER Technologist: SOLITARIO Exam Location: [facility] [place] Indication: cardiomegaly BP: 132 / 80 HR: 98 Rhythm: Other Technical Quality: Adequate MEASUREMENTS (Male / Female) Normal Values 2D ECHO LV Diastolic Diameter PLAX 2.5 cm 4.2 - 5.9 / 3.9 - 5.3 cm LV Systolic Diameter PLAX 1.7 cm IVS Diastolic Thickness 1.1 cm 0.6 - 1.0 / 0.6 - 0.9 cm IVS Systolic Thickness 1.2 cm LVPW Diastolic Thickness 1.0 cm 0.6 - 1.0 / 0.6 - 0.9 cm LVPW Systolic Thickness 1.7 cm LVOT Diameter 2.0 cm LV Ejection Fraction 2D Teich 59.4 % LV Ejection Fraction MOD 2C 56.1 % LV Ejection Fraction 2C AL 56.7 % LA Diameter 3.6 cm LA Width 3.1 cm LA Height 5.6 cm RA Width 4.2 cm RA Height 4.5 cm Aorta at Sinotubular Diameter 2.4 cm M-MODE Aortic Annulus Diameter 2.6 cm LA Ao Ratio MM 1.3 MV E Point Septal Separation 1.0 cm DOPPLER AV Peak Velocity 189.0 cm/s LVOT Peak Velocity 75.0 cm/s AV Area Cont Eq vti 1.5 cm squared AV Area Cont Eq pk 1.2 cm squared MV Area PHT 5.4 cm squared Mitral E to A Ratio 0.6 MV E' Velocity 27.5 cm/s Mitral E to MV E' Ratio 6.0 Mitral E to LV E' Lateral Ratio 7.8 Mitral E to LV E' Septal Ratio 4.9 TR Peak Velocity 262.8 cm/s TR Peak Gradient 27.6 mmHg TR Mean Velocity 205.3 cm/s TR Mean Gradient 17.8 mmHg TR Velocity Time Integral 71.0 cm Right Atrial Pressure 3.0 mmHg Pulmonary Artery Systolic Pressu 30.6 mmHg RV Acceleration Time 0.1 s RV Ejection Time 0.3 s RV AcT/ET 0.3 FINDINGS Left Ventricle Normal left ventricular size and systolic function, EF 65%.no regional wall motion abnormalities. Right Ventricle The right ventricle is normal in size and function. Right Atrium The right atrium is normal in size. Left Atrium The left atrium is normal in size. Mitral Valve No gross abnormalities noted Aortic Valve Thickened aortic valve. Tricuspid Valve Trace tricuspid valve regurgitation. Pulmonic Valve No gross abnormalities noted Pericardium No pericardial effusion. Aorta Normal size aortic root and proximal ascending aorta. CONCLUSIONS Normal left ventricular size and systolic function, EF 65%. No regional wall motion abnormalities. Thickened aortic valve. Trace tricuspid valve regurgitation. Estimated pulmonary artery peak systolic pressure 31 mmHg. There is no pericardial effusion. There are no intracardiac masses. No previous study is available for comparison. Dr Kristen Avendano MD FACC (Electronically Signed) Final Date: 07 November 2021 01:01 S
== END 2021-11-04 10:01 | disposition home or self-care (01) ==
LOC: RAD 10:02
PROVIDERS: PCP Nurse Practitioner Family; Visit Provider Nurse Practitioner Family
DX: I08.2 Rheumatic disorders of both aortic and tricuspid valves (principal); R05.9 Cough, unspecified
CPT/HCPCS: 71046; 85025; 87400; 93306

== ENCOUNTER → 2022-02-05 00:01 | Outpatient (BNVA) | payer MEDICARE, BC, SELFPAY | PROVIDERS: PCP Nurse Practitioner Family; Visit Provider Nurse Practitioner Family | DX: J18.9 Pneumonia, unspecified organism (principal); I10 Essential (primary) hypertension; E11.9 Type 2 diabetes mellitus without complications; E55.9 Vitamin D deficiency, unspecified; Z20.822 Contact with and (suspected) exposure to COVID-19 | CPT/HCPCS: 80053; 80061; 82306; 83036; 85025; 87631; 87635 ==

== ENCOUNTER → 2022-02-26 09:05 | Outpatient (BNVA) | payer MEDICARE, BC, SELFPAY | PROVIDERS: PCP Nurse Practitioner Family; Visit Provider Internal Medicine Critical Care Medicine | DX: J45.909 Unspecified asthma, uncomplicated (principal); G47.10 Hypersomnia, unspecified; J12.89 Other viral pneumonia; J43.9 Emphysema, unspecified; J96.11 Chronic respiratory failure with hypoxia; R07.9 Chest pain, unspecified; U09.9 Post COVID-19 condition, unspecified; Z87.891 Personal history of nicotine dependence; R06.02 Shortness of breath | CPT/HCPCS: 36415; 82785; 85025; 86003; 99214 ==

== ENCOUNTER 2022-04-08 12:32 | Outpatient (CLI) | payer MEDICARE, BC, SELFPAY ==
--- NOTE | 2022-04-08 13:00 | CT_ITS ---
WS: [id number] LDCT LUNG CANCER SCREENING TECHNIQUE: Noncontrast CT of the chest with coronal and sagittal reformatted images. CLINICAL INFORMATION: Lung cancer screeni COMPARISON: CTA July 13, 2020 DLP: 65.82 mGy.cm DIvol: Mean CTDIvol: 1.60 (mGy) All CT scans at [facility] use at least one of these dose optimization techniques: automat ed exposure control; mA and/or kV adjustment per patient size (includes targeted exams where dose is matched to clinical indication); or iterative reconstruction. FINDINGS: Normal caliber thoracic aorta. Aortic calcification. Coronary calcification. No mediastinal or hilar lymphadenopathy. No axillary lymphadenopathy. No pericardial effusion. Irregular RIGHT lower lobe pul monary nodule measuring 11 mm is new from previous. Slight surrounding infiltrate. Recommend 3 month follow-up. Spiculated pulmonary nodule in the anterior inferior LEFT upper lobe near the fissure measuring 9 mm appears stable compared to July 13, 2020. Associated surrounding infiltrate is improved. Subpleural RIGHT lower lobe nodule measuring 4 mm is stable. A few additional scattered tiny subcenti meter nodules.\ Small esophageal hiatal hernia. Partially visualized hepatomegaly. Mild spondylitic changes thoracic spine. CT/CT lung screening [id number] IMPRESSION: LUNG-RADS: 4A-Probably Suspicious FOLLOW UP: 3 Month LDCT
== END 2022-04-08 12:33 | disposition home or self-care (01) ==
LOC: RAD 12:36
PROVIDERS: PCP Nurse Practitioner Family; Visit Provider Internal Medicine Critical Care Medicine
DX: Z12.2 Encounter for screening for malignant neoplasm of respiratory organs (principal); Z87.891 Personal history of nicotine dependence; R91.1 Solitary pulmonary nodule
CPT/HCPCS: 71271

== ENCOUNTER → 2022-06-10 16:42 | Outpatient (BNVA) | payer MEDICARE, BC, SELFPAY | PROVIDERS: PCP Nurse Practitioner Family; Visit Provider Nurse Practitioner Family | DX: E11.9 Type 2 diabetes mellitus without complications (principal); I10 Essential (primary) hypertension; E55.9 Vitamin D deficiency, unspecified; M54.50 Low back pain, unspecified; G89.29 Other chronic pain; M25.561 Pain in right knee; M25.562 Pain in left knee; F41.9 Anxiety disorder, unspecified; F32.A Depression, unspecified | CPT/HCPCS: 80053; 80061; 82043; 82306; 82607; 83036; 83735; 84443; 85025 ==

== ENCOUNTER 2022-06-24 19:28 | Emergency (ER) | payer MEDICARE, BC, SELFPAY ==
[2022-06-24 19:52] VITALS: BMI 40.7
[2022-06-24 19:54] VITALS: BP 136/83; PULSE 124; RESP 16; TEMP 37.7; O2SAT 93
--- NOTE | 2022-06-24 20:18 | CTR_ITS ---
PROCEDURE INFORMATION: Exam: CT Abdomen And Pelvis With Contrast Exam date and time: 06/24/2022 9:32 PM Age: 66 years old Clinical indication: Abdominal pain; Prior surgery; Surgery type: Gb; Patient HX: C/O periumbilical pain with n/v. ; Additional info: Periumbilical abdominal pain with n/v TECHNIQUE: Imaging protocol: Computed tomography of the abdomen and pelvis with contrast. Radiation optimization: All CT scans at this facility use at least one of these dose optimization techniques: automated exposure control; mA and/or kV adjustment per patient size (includes targeted exams where dose is matched to clinical indication); or iterative reconstruction. Contrast material: OMNI 350; Contrast volume: 80 ml; Contrast route: INTRAVENOUS (IV); COMPARISON: CT lung screening [id number] 04/08/2022 12:46 PM RADIATION DOSE METRICS: Total DLP (mGy-cm): 1084.4 FINDINGS: Lungs: Lingular lobe 15 mm nodule somewhat visualized, similar compared to prior exam suggestive of some chronic scarring. Emphysematous changes. Heart: Suspected coronary artery atherosclerotic calcifications. Liver: Hepatic steatosis. Gallbladder and bile ducts: Cholecystectomy. Pancreas: Normal. No ductal dilation. Spleen: Spleen enlarged to 14 cm. Adrenal glands: Normal. No mass. Kidneys and ureters: Normal. No hydronephrosis. Stomach and bowel: Diverticulosis without diverticulitis. Prominent fluid in the small bowel without dilation suggestive of an enteritis. Appendix: No evidence of appendicitis. Intraperitoneal space: Unremarkable. No free air. No significant fluid collection. Vasculature: Unremarkable. No abdominal aortic aneurysm. Lymph nodes: Unremarkable. No enlarged lymph nodes. Urinary bladder: Unremarkable as visualized. Reproductive: Unremarkable as visualized. Bones/joints: Unremarkable. No acute fracture. Soft tissues: Unremarkable. CT/CT abdomen pelvis w con* [id number] IMPRESSION: 1. Prominent fluid in the small bowel without dilation suggestive of an enteritis. 2. Suspected coronary artery atherosclerotic calcifications. 3. Lingular lobe 15 mm nodule somewhat visualized, similar compared to prior exam suggestive of some chronic scarring. 4. Emphysematous changes. 5. Hepatic steatosis. 6. Spleen enlarged to 14 cm. 7. Cholecystectomy. 8. Diverticulosis without diverticulitis.
--- NOTE | 2022-06-24 20:19 | ED_ITS ---
HPI - Abdominal Pain General: Chief Complaint: Abdominal Pain Stated Complaint: N/V Abd Pain Time Seen by Provider: 06/24/22 20:04 History of Present Illness: Patient is a 66-year-old female comes to the ED via EMS with abdominal pain nausea and vomiting. EMS gave patient nausea and pain meds while in route. Symptoms started at 5 AM this morning. She woke up and started having nausea and vomiting and abdominal pain. The abdominal pain is located in the periumbilical region. She has not been able to keep any food or fluids down today and has had multiple episodes of emesis. Denies any fever, chills, body aches, chest pain, shortness of breath, diarrhea, constipation, blood in stool, dysuria or hematuria. 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 Denies any past abdominal surgeries. Associated Symptoms: Reports nausea and vomiting; Denies chills, constipation, diarrhea, dysuria, fever(s), hematochezia and hematuria Related Data: Date of Last Menstrual Period: 07/13/95 Review of Systems Const: Denies: fever(s), chills or fatigue Eyes: Denies: change in vision or eye discomfort ENMT: Denies: throat pain, odynophagia, nasal discharge or nasal congestion Card: Denies: chest pain, palpitations, edema, swelling of feet/ankles, dyspnea on exertion or orthopnea Resp: Denies: dyspnea, productive cough or non-productive cough GI: Reports: abdominal pain, nausea and vomiting; Denies: diarrhea, constipation or hematochezia : Denies: flank pain, dysuria or hematuria Musc: Denies: neck pain, back pain or extremity swelling Skin/Breast: Denies: rash or new lesions Neuro: Denies: headache(s), numbness in extremities or weakness in extremities PFSH ED PFSH: Medical History DDD (degenerative disc disease) Eating disorder GERD (gastroesophageal reflux disease) Hypertension Insomnia Type 2 diabetes mellitus Vitamin D deficiency Surgical History History of cholecystectomy Family History Father Diabetes Mother CAD (coronary artery disease) Diabetes Social History Smoking and tobacco status: former smoker Quit status (tobacco): has quit using tobacco Year quit tobacco: 2017 - 1PPD x 45 Years Second hand smoke exposure: No Smoking risk assessment/counseling performed?: Yes Alcohol intake: never Lives independently: Yes Household members: none Marital status: Current occupational status: unemployed Pets and animals: Yes History of recent travel: No Current gender identity: Female Female Reproductive History: Date of last menstrual period: 07/13/95 Physical Exam Const: COMMON NORMALS: no acute distress, patient oriented x3 and alert GENERAL APPEARANCE: cooperative HENMT: COMMON NORMALS: normocephalic HEAD & SCALP: normocephalic MOUTH: Normal oral and palatal mucosa present THROAT: posterior oropharynx normal and uvula midline Neck/C-Spine: COMMON NORMALS: supple GENERAL: Yes normal visual inspection Resp: COMMON NORMALS: normal respiratory effort, No retractions, No use of accessory muscles and clear to auscultation bilaterally AUSCULTATION: clear to auscultation bilaterally Cardio: COMMON NORMALS: regular rate, regular rhythm, S1 normal heart sound present, S2 normal heart sound present, No gallops present (Cardio), No clicks present (Cardio), No murmurs present (Cardio) and Peripheral pulses 2+ throughout RATE: regular rate RHYTHM: regular rhythm HEART SOUNDS: S1 normal heart sound present and S2 normal heart sound present PERIPHERAL PULSES: Peripheral pulses 2+ throughout GI: COMMON NORMALS: Normal to inspection, nondistended, normoactive bowel sounds present, Soft to palpation and no masses PALPATION: Yes Soft to palpation and Yes Tenderness to palpation present (GI) Details: other (Periumbilical) : COMMON NORMALS: Yes no CVA tenderness BLADDER/KIDNEY EXAM: Yes no CVA tenderness Back/Pelvis: COMMON NORMALS: no CVA tenderness Extremity: COMMON NORMALS: normal to inspection Neuro: COMMON NORMALS: patient oriented x3 SENSORIUM/ORIENTATION: Yes alert GAIT: Yes Normal gait present Skin: GENERAL SKIN EXAM: dry skin Course ED course: After patient received 1 L of IV fluids and nausea meds her symptoms improved and she was able to keep down p.o. fluids. Vital Signs: Vital signs: Vital Signs Temperature 99.9 F H 06/24/22 19:54 Pulse Rate 110 H 06/24/22 22:23 Respiratory Rate 17 06/24/22 22:23 Blood Pressure 127/91 06/24/22 22:23 Pulse Oximetry 91 06/24/22 22:23 Oxygen Delivery Me thod 06/24/22 22:23 MDM - Abdominal Pain Medical Decision Making Patient is a 66-year-old female comes to the ED with nausea vomiting and periumbilical abdominal pain. Symptoms started this morning. She describes her abdominal pain as mild. 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 Vitals are stable. Patient appears nontoxic and in no acute distress. She has some mild periumbilical tenderness the rest of exam is benign. Labs are unremarkable. CT of abdomen pelvis shows prominent fluid in small bowel without dilation suggestive of enteritis. After patient received 1 L of IV fluids and nausea meds her symptoms improved and she was able to keep down p.o. fluids. Patient was stable for discharge home and diagnosed with viral gastroenteritis and sent home with a prescription for nausea med. Told to follow-up with PCP in the next week for reevaluation. Return to ED precautions given. Patient understood and agreed with plan. Lab Data I reviewed the patient's lab results. : 06/24/22 20:29 06/24/22 20:29 Labs/Radiology: Radiology Impressions Abdomen/Pelvis CT 06/24/22 20:18 IMPRESSION: 1. Prominent fluid in the small bowel without dilation suggestive of an enteritis. 2. Suspected coronary artery atherosclerotic calcifications. 3. Lingular lobe 15 mm nodule somewhat visualized, similar compared to prior exam suggestive of some chronic scarring. 4. Emphysematous changes. 5. Hepatic steatosis. 6. Spleen enlarged to 14 cm. 7. Cholecystectomy. 8. Diverticulosis without diverticulitis. Laboratory Results WBC 10.8 10^3/uL (4.0-10.0) H 06/24/22 20:29 RBC 5.38 10^6/uL (4.1-5.3) H 06/24/22 20:29 Hgb 15.4 g/dL (11.5-15.3) H 06/24/22 20:29 Hct 46.3 % (37.0-47.0) 06/24/22 20: MCV 86.1 fl (81-99) 06/24/22 20:29 MCH 28.6 pg (28.0-34.0) 06/24/22: MCHC 33.3 g/dL (30.0-36.0) 06/24/22: RDW 13.1 % (12.1-15.1) 06/24/22: Plt Count 257 10^3/cmm (130-400) 06/24/22: MPV 11.6 fL (7.4-10.4) H 06/24/22: Neut % (Auto) 85.1 % 06/24/22: Lymph % (Auto) 6.9 % 06/24/22: [place]ley % (Auto) 6.8 % 06/24/22: Eos % (Auto) 0.5 % 06/24/22: Baso % (Auto) 0.3 % 06/24/22: Neut # (Auto) 9.19 10^3/uL (1.8-7.7) H 06/24/22: Lymph # (Auto) 0.7 10^3/uL (0.8-4.8) L 06/24/22: [place]ley # (Auto) 0.7 10^3/uL (0.2-0.9) 06/24/22: Eos # (Auto) 0.1 10^3/uL (0.0-0.8) 06/24/22: Baso # (Auto) 0.0 10^3/uL (0.0-0.1) 06/24/22: Nucleated RBC % (auto) 0 % 06/24/22: Nucleated RBCs # 0.0 /100WBC 06/24/22 20: Sodium 138 mmol/L (136-145) 06/24/22: Potassium 3.8 mmol/L (3.5-5.1) 06/24/22: Chloride 105 mmol/L (98-107) 06/24/22: Carbon Dioxide 19 mmol/L (22-29) L 06/24/22: Anion Gap 17.8 (5-19) 06/24/22: BUN 22 mg/dL (8-23) 09/14/22 20:29 Creatinine 0.5 mg/dL (0.5-0.9) 06/24/22 20:29 GFR Calculation 123.8 mL/min (90-130) 06/24/22 20: Glucose 191 mg/dL (65-115) H 06/24/22 20:29 Calculated Osmolality 294 mOsm/kg (285-295) 06/24/22 20:29 Lactic Acid 0.7 mmol/L (0.5-2.2) 06/24/22 20: Calcium 8.4 mg/dL (8.5-10.5) L 06/24/22 20:29 Total Bilirubin 0.7 mg/dL (0.15-1.2) 06/24/22 20: AST 59 U/L (0-32) H 06/24/22 20: ALT 57 U/L (0-33) H 06/24/22 20:29 Alkaline Phosphatase 118 U/L (35-105) H 06/24/22 20:29 Total Protein 6.3 g/dL (6.6-8.7) L 06/24/22 20:29 Albumin 3.6 g/dL (3.5-5.2) 06/24/22 20: Globulin 2.7 g/dL (1.3-4.6) 06/24/22 20: Lipase 10 U/L (13-60) L 06/24/22 20:29 Urine Color Yellow (Yellow) 06/24/22 22:16 Urine Appearance Clear (CLEAR) 06/24/22 22:16 Urine pH 5 (5-7) 06/24/22 22:16 Ur Specific [place] 1.010 (1.005-1.030) 06/24/22 22:16 Urine Protein Neg (Negative) 06/24/22 22:16 Urine Glucose (UA) 4+ (Normal) H 06/24/22 22:16 Urine Ketones 2+ (Negative) H 06/24/22 22:16 Urine Blood Neg (Negative) 06/24/22 22:16 Urine Nitrate Negative (Negative) 06/24/22 22:16 Urine Bilirubin Neg (Negative) 06/24/22 22:16 Urine Urobilinogen Norm mg/dL (Negative) 06/24/22 22:16 Ur Leukocyte Esterase Negative (Negative) 06/24/22 22:16 Discharge Plan Discharge Patient Disposition: Home Clinical Impression: Viral gastroenteritis Condition: Stable Prescriptions: New ondansetron 4 mg tablet,disintegrating 4 mg PO Q8H PRN (Reason: nausea and vomiting) Qty: 15 0RF No Action (DME) oxygen with portable concentrator See Rx Instructions .Route .MEDSUPPLY Qty: 1 0RF Rx Instructions: 2L O2 via [place] Advair Diskus 250-50 mcg/dose blister with device 1 ea inhalation BID.RESPIRATORY Qty: 60 3RF fluticasone propionate [Flonase Allergy Relief] 50 mcg/actuation spray,suspension 2 spray intranasal DAILY Qty: 16 5RF Rx Instructions: administer into each nostril montelukast [Singulair] 10 mg tablet 10 mg PO DAILY 30 Days Qty: 30 4RF ergocalciferol (vitamin D2) 1,250 mcg (50,000 unit) capsule See Rx Instructions .ROUTE .COMPLEX Dose Instruction: TAKE 1 CAPSULE BY MOUTH TWICE A WEEK Rx Instructions: TAKE 1 CAPSULE BY MOUTH ONCE A WEEK lisinopril 10 mg tablet See Rx Instructions .ROUTE .COMPLEX Qty: 90 1RF Dose Instruction: Take 1 tablet by mouth once daily Rx Instructions: Take 1 tablet by mouth once daily bupropion HCl 150 mg tablet extended release 24 hr 450 mg .ROUTE .COMPLEX 90 Days Qty: 270 0RF Rx Instructions: 450 mg; (DME) Inogen Oxygen System See Rx Instructions .Route .MEDSUPPLY Qty: 1 0RF Rx Instructions: change product to Inogen system @2L O2 albuterol sulfate 90 mcg/actuation HFA aerosol inhaler See Rx Instructions .ROUTE .COMPLEX Qty: 18 3RF Dose Instruction: INHALE 2 PUFFS BY MOUTH 4 TIMES DAILY NEEDED FOR SHORTNESS OF BREATH FOR WHEEZING Rx Instructions: INHALE 2 PUFFS BY MOUTH 4 TIMES DAILY NEEDED FOR SHORTNESS OF BREATH FOR WHEEZING albuterol sulfate 2.5 mg /3 mL (0.083 %) solution for nebulization 2.5 mg inhalation QID PRN (Reason: shortness of breath or wheezing) Qty: 180 2RF (DME) nebulizer machine, tubing, adult mask See Rx Instructions .Route .MEDSUPPLY Qty: 1 0RF Rx Instructions: As directed cetirizine [Zyrtec] 10 mg tablet 10 mg PO DAILY PRN (Reason: allergy symptoms) Qty: 30 5RF rosuvastatin 10 mg tablet See Rx Instructions .ROUTE .COMPLEX Qty: 30 3RF Dose Instruction: Take 1 tablet by mouth once daily Rx Instructions: Take 1 tablet by mouth once daily glyburide 5 mg tablet See Rx Instructions .ROUTE .COMPLEX Qty: 180 0RF Dose Instruction: Take 2 tablets by mouth once daily Rx Instructions: Take 2 tablets by mouth once daily Farxiga 10 mg tablet See Rx Instructions .ROUTE .COMPLEX Qty: 90 0RF Dose Instruction: TAKE 1 TABLET BY MOUTH ONCE DAILY IN THE MORNING Rx Instructions: TAKE 1 TABLET BY MOUTH ONCE DAILY IN THE MORNING amitriptyline 10 mg tablet See Rx Instructions .ROUTE .COMPLEX Qty: 270 1RF Dose Instruction: TAKE 3 TABLETS BY MOUTH AT BEDTIME Rx Instructions: TAKE 3 TABLETS BY MOUTH AT BEDTIME omeprazole 40 mg capsule,delayed release(DR/EC) See Rx Instructions .ROUTE .COMPLEX Qty: 90 0RF Dose Instruction: Take 1 capsule by mouth once daily Rx Instructions: Take 1 capsule by mouth once daily celecoxib 200 mg capsule See Rx Instructions .ROUTE .COMPLEX Qty: 90 0RF Dose Instruction: Take 1 capsule by mouth once daily Rx Instructions: Take 1 capsule by mouth once daily metformin 500 mg tablet See Rx Instructions .ROUTE .COMPLEX Qty: 90 0RF Dose Instruction: TAKE 1 TABLET BY MOUTH IN THE MORNING AND TAKE 2 TABLETS IN THE EVENING Rx Instructions: TAKE 1 TABLET BY MOUTH IN THE MORNING AND TAKE 2 TABLETS IN THE EVENING needs labs cyclobenzaprine 10 mg tablet See Rx Instructions .ROUTE .COMPLEX Qty: 270 0RF Dose Instruction: Take 1 tablet by mouth three times daily as needed for muscle spasm Rx Instructions: Take 1 tablet by mouth three times daily as needed for muscle spasm vitamin B complex Tablet 1 tab PO DAILY zinc gluconate 50 mg Tablet 50 mg PO DAILY Qty: 30 0RF Discharge Orders: Discharge ED (Routine); Ordered 06/24/22 Ordered By: Ming Harris Referrals: Rupal Charles FNP [Primary Care Provider] - Discharge Diet: Advance as tolerated and Clear Liquid Discharge Activity: Increase activity as tolerated Patient Instructions: Gastroenteritis (DC), Viral Syndrome (ED) Activity Restrictions/Additional Instructions: Follow-up with medical provider as directed in the next 5 to 7 days reevaluation. Clear liquid diet for the next 12 to 24 hours then slowly advance diet as tolerated. take medications as prescribed. Return to the ER or your medical provider if condition worsens. Please read and understand discharge instructions. Thank you for choosing [facility] for your healthcare needs today. Please realize this is an emergency room and that we are providing you with a medical screening exam and this may not be complete and all inclusive of all the testing and or work up that you may need to determine your ailment or severity of your illness. It is very important that you follow up as instructed or that you return to the Emergency Department should you have concerns or if your condition changes or worsens in any way. Follow-up with medical provider as directed. Take medications as prescribed. Return to the ER or your medical provider if condition worsens. Please read and understand discharge instructions. 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
[2022-06-24 20:36] LABS: Basophils % 0.3 %; Eosinophils # 0.1 10^3/uL (0.0-0.8); Eosinophils % 0.5 %; Hematocrit 46.3 % (37.0-47.0); Hemoglobin 15.4 g/dL (11.5-15.3); Lymphocytes # 0.7 10^3/uL (0.8-4.8); Lymphocytes % 6.9 %; Mean Corpuscular HGB Conc 33.3 g/dL (30.0-36.0); Mean Corpuscular Hemoglobin 28.6 pg (28.0-34.0); Mean Corpuscular Volume 86.1 fl (81-99); Mean Platelet Volume 11.6 fL (7.4-10.4); Monocytes # 0.7 10^3/uL (0.2-0.9); Monocytes % 6.8 %; Neutrophils # 9.19 10^3/uL (1.8-7.7); Neutrophils % 85.1 %; Nucleated Red Blood Cells % 0 %; Platelet Count 257 10^3/cmm (130-400); Red Blood Count 5.38 10^6/uL (4.1-5.3); Red Cell Distribution Width 13.1 % (12.1-15.1); White Blood Count 10.8 10^3/uL (4.0-10.0)
[2022-06-24] MEDS: ondansetron 2 mg/ML SDV 2 mL 4 MG IVP (21:18)
[2022-06-24] MEDS: sodium chloride 0.9% 1,000 ML 999 ML IV (21:20)
[2022-06-24] MEDS: iohexol 350 mg/mL 100 mL Btl IV (21:33)
[2022-06-24 21:38] LABS: Glomerular Filtration Rate 123.8 mL/min (90-130)
[2022-06-24 22:01] LABS: Alanine Aminotransferase 57 U/L (0-33); Albumin Level 3.6 g/dL (3.5-5.2); Alkaline Phosphatase 118 U/L (35-105); Globulin 2.7 g/dL (1.3-4.6); Lactic Sepsis W/Reflex 0.7 mmol/L (0.5-2.2)
[2022-06-24 22:03] LABS: Anion Gap 17.8 (5-19); Blood Urea Nitrogen 22 mg/dL (8-23); Carbon Dioxide 19 mmol/L (22-29); Chloride 105 mmol/L (98-107); Osmolality Calculated 294 mOsm/kg (285-295); Potassium 3.8 mmol/L (3.5-5.1); Sodium 138 mmol/L (136-145)
[2022-06-24 22:04] LABS: Aspartate Amino Transferase 59 U/L (0-32); Calcium 8.4 mg/dL (8.5-10.5); Glucose 191 mg/dL (65-115); Lipase 10 U/L (13-60); Total Bilirubin 0.7 mg/dL (0.15-1.2); Total Protein 6.3 g/dL (6.6-8.7)
[2022-06-24 22:23] VITALS: BP 127/91; PULSE 110; RESP 17; O2SAT 91
[2022-06-24 22:44] LABS: Add Urine Microscopic? NO; Charge for UA Resulting for Rev
[2022-06-24 22:49] LABS: Glucose Urine UA 4+ (Normal); Ketones Urine 2+ (Negative); Protein Urine Neg (Negative); Urine Appearance Clear (CLEAR); Urine Color Yellow (Yellow); pH Urine 5 (5-7)
[2022-06-24 22:50] LABS: Bilirubin Urine Neg (Negative); Blood Urine Neg (Negative); Leukocyte Esterase Urine Negative (Negative); Nitrate Urine Negative (Negative); Urobilinogen Urine Norm (Negative)
== END 2022-06-24 22:53 | disposition home or self-care (01) ==
PROVIDERS: Emergency Medicine; Emergency Provider Physician Assistant; PCP Nurse Practitioner Family
DX: A08.4 Viral intestinal infection, unspecified (principal); E11.9 Type 2 diabetes mellitus without complications; I10 Essential (primary) hypertension; Z79.84 Long term (current) use of oral hypoglycemic drugs; Z87.891 Personal history of nicotine dependence
CPT/HCPCS: 74177; 80053; 81003; 83605; 83690; 85025; 96361; 96374; 99285; J2405; J7030; Q9967

== ENCOUNTER → 2022-06-30 15:29 | Outpatient (BNVA) | payer MEDICARE, BC, SELFPAY | PROVIDERS: PCP Nurse Practitioner Family; Visit Provider Internal Medicine Critical Care Medicine | DX: J45.909 Unspecified asthma, uncomplicated (principal); J43.9 Emphysema, unspecified; R91.1 Solitary pulmonary nodule; R07.9 Chest pain, unspecified; J96.11 Chronic respiratory failure with hypoxia; G47.10 Hypersomnia, unspecified; Z86.16 Personal history of COVID-19; Z87.891 Personal history of nicotine dependence | CPT/HCPCS: 99214 ==

== ENCOUNTER 2022-07-08 06:00 | Outpatient (RCR) | payer MEDICARE, BC, SELFPAY | END 2022-07-10 23:59 | disposition home or self-care (01) | LOC: TPT 06:00 | PROVIDERS: PCP Nurse Practitioner Family; Visit Provider Nurse Practitioner Family | DX: M54.50 Low back pain, unspecified (principal); G89.29 Other chronic pain; M25.561 Pain in right knee; M25.562 Pain in left knee | CPT/HCPCS: 97163 ==

== ENCOUNTER 2022-07-11 06:00 | Outpatient (RCR) | payer MEDICARE, BC, SELFPAY | END 2022-08-10 23:59 | disposition home or self-care (01) | LOC: TPT 06:00 | PROVIDERS: PCP Nurse Practitioner Family; Visit Provider Nurse Practitioner Family | DX: M54.50 Low back pain, unspecified (principal); G89.29 Other chronic pain; M25.561 Pain in right knee; M25.562 Pain in left knee | CPT/HCPCS: 97110 ==

== ENCOUNTER 2022-08-05 16:16 | Outpatient (CLI) | payer MEDICARE, BC, SELFPAY ==
--- NOTE | 2022-08-05 17:00 | CT_ITS ---
WS: [id number] CT CHEST WITHOUT INTRAVENOUS CONTRAST HISTORY: Lung nodule TECHNIQUE: Contiguous 5 mm axial imaging performed on the thorax. Coronal and sagittal reformats are submitted. All CT scans at [facility] use at least one of these dose optimization techniques: automated exposure control; mA and/or kV adjustment per patient size (includes targeted exams where dose is matched to clinical indication); or iterative reconstruction. CONTRAST: None DLP: 727.11 mGy.cm COMPARISON: 04/08/2022 and 07/13/2020 Lungs and central airway: Mild pulmonary hyperinflation from emphysema. Previously described spiculat ed nodule in the posterior RIGHT lower lobe is reidentified with minimal decreased in size to 8.1 mm. There is adjacent surrounding groundglass attenuation which is not improving. Pleural-based nodule R IGHT lower lobe is stable measuring 6 mm. There are a few additional scattered areas of interstitial thickening and stable nodules. No new pneumonia. Pleura: Normal. No pleural effusion. Heart and pericardium: Normal size heart with no pericardial effusion. Mediastinum and pj: No mediastinum or hilar adenopathy. Vessels: Very mild atherosclerosis aorta. Normal size pulmonary artery. Chest wall and lower neck: No soft tissue masses. Upper abdomen: Hepatic steatosis. No adrenal mass. Osseous structures: No destructive process. CT/CT chest wo con [id number] IMPRESSION: 1. Slight decrease in size of the slightly spiculated nodule in the RIGHT lowe r lobe with surrounding groundglass attenuation. Continued close follow-up otilio mmended. Nodule now measures 8.1 mm. 2. No mediastinal or hilar adenopathy. 3. Hepatic steatosis.
== END 2022-08-05 16:17 | disposition home or self-care (01) ==
LOC: RAD 16:17
PROVIDERS: PCP Nurse Practitioner Family; Visit Provider Internal Medicine Critical Care Medicine
DX: R91.1 Solitary pulmonary nodule (principal)
CPT/HCPCS: 71250

== ENCOUNTER → 2022-08-27 11:29 | Outpatient (BNVA) | payer MEDICARE, BC, SELFPAY | PROVIDERS: PCP Nurse Practitioner Family; Visit Provider Nurse Practitioner Family | DX: E11.9 Type 2 diabetes mellitus without complications (principal); I10 Essential (primary) hypertension | CPT/HCPCS: 80053; 83036; 85025 ==

== ENCOUNTER → 2022-12-28 14:40 | Outpatient (BNVA) | payer BC, SELFPAY | PROVIDERS: PCP Nurse Practitioner Family; Visit Provider Internal Medicine Pulmonary Disease | DX: J45.909 Unspecified asthma, uncomplicated (principal); J43.9 Emphysema, unspecified; R91.1 Solitary pulmonary nodule; J96.11 Chronic respiratory failure with hypoxia; Z86.16 Personal history of COVID-19 | CPT/HCPCS: 99214 ==

== ENCOUNTER → 2023-01-06 16:28 | Outpatient (BNVA) | payer BC, SELFPAY | PROVIDERS: PCP Nurse Practitioner Family; Visit Provider Nurse Practitioner Family | DX: E11.9 Type 2 diabetes mellitus without complications (principal); E55.9 Vitamin D deficiency, unspecified | CPT/HCPCS: 80053; 80061; 82306; 83036; 84443; 85025 ==

== ENCOUNTER 2023-01-26 15:48 | Outpatient (CLI) | payer MEDICARE, BC, SELFPAY ==
--- NOTE | 2023-01-26 16:00 | CT_ITS ---
WS: [id number] CT chest wo con [id number] HISTORY: 6 month f/u lung nodule TECHNIQUE: Axial imaging performed through the thorax. Coronal and sagittal reformats are submitted. All CT scans at [facility] use at least one of these dose optimization techniques: automated exposure control; mA and/or kV adjustment per patient size (includes targeted exams where dose is mat ched to clinical indication); or iterative reconstruction. CONTRAST: None DLP: 431.33 mGy.cm COMPARISON: 08/05/2022 Lungs and central airway: Mild hyperinflation. Mild interstitial thickening and very mild groundglass attenuation in the upper lung parker. Subsolid nodule measuring 11 mm in the RIGHT lower lobe with a djacent groundglass attenuation is reidentified. This nodule appears more consolidated and solid on t janet's exam. There is an adjacent micronodule in the RIGHT lower lobe. No additional nodule or pneumo aria. Pleura: Normal. No pleural effusion. Heart and pericardium: Normal size heart with no pericardial effusion. Mediastinum and pj: No mediastinum or hilar adenopathy. Vessels: Mild atherosclerosis aorta. Normal size pulmonary artery. Moderate coronary artery calcifica tions. Chest wall and lower neck: No soft tissue masses. Upper abdomen: Hepatic steatosis. Prior cholecystectomy. No adrenal mass. Osseous structures: Thoracic spondylosis. CT/CT chest wo con [id number] IMPRESSION: 1. Slight increase in size and increasing solid component of the 11 mm nodule in the RIGHT lower lobe with adjacent groundglass attenuation. Recommend contin ued close interval follow-up. Chest CT follow-up in 3 months. 2. No adenopathy. 3. Chronic emphysema. 4. Hepatic steatosis. 5. Prior cholecystectomy.
== END 2023-01-26 15:49 | disposition home or self-care (01) ==
LOC: RAD 15:56
PROVIDERS: PCP Nurse Practitioner Family; Visit Provider Internal Medicine Pulmonary Disease
DX: R91.1 Solitary pulmonary nodule (principal); J43.8 Other emphysema; K76.0 Fatty (change of) liver, not elsewhere classified; Z90.49 Acquired absence of other specified parts of digestive tract
CPT/HCPCS: 71250

== ENCOUNTER 2023-04-28 10:59 | Outpatient (CLI) | payer BC, SELFPAY ==
--- NOTE | 2023-04-28 11:00 | CTR_ITS ---
PROCEDURE INFORMATION: Exam: CT Chest Without Contrast; Diagnostic Exam date and time: 04/28/2023 11:02 AM Age: 67 years old Clinical indication: Abnormal findings; Abnormal radiologic exam of lung or chest; Additional info: Abnormal CT f/u TECHNIQUE: Imaging protocol: Diagnostic computed tomography of the chest without contrast. Radiation optimization: All CT scans at this facility use at least one of these dose optimization techniques: automated exposure control; mA and/or kV adjustment per patient size (includes targeted exams where dose is matched to clinical indication); or iterative reconstruction. REPORTING DATA: Count of CT and Cardiac NM exams in prior 12 months: This patient has received 3 known CTs and 0 known cardiac nuclear medicine studies in the 12 months prior to the current study. COMPARISON: 1. CT chest wo con [id number] 01/26/2023 4:[address] chest wo con [id number] 08/05/2022 4:[address] lung screening [id number] 04/08/2022 12:46 PM RADIATION DOSE METRICS: Total DLP (mGy-cm): 407.68 FINDINGS: Lungs: Mild upper lung predominant emphysematous changes. Stable mild [id number]-left upper lung reticulation. Intervally stable size and morphology of 11 x 6 mm right lower lobe pulmonary nodule on axial image 27 of series 4 with mild adjacent ground-glass attenuation/reticulation. Few additional sub 6 mm pulmonary micronodules are stable. No consolidation. Pleural spaces: Unremarkable. No pneumothorax. No pleural effusion. Heart: Mitral annular calcification. No cardiomegaly. No pericardial effusion. Coronary arteries: Mild coronary artery calcification. Lymph nodes: No enlarged lymph nodes. Vasculature: Mild systemic atherosclerotic calcification without aortic aneurysm. Liver: Diffuse hepatic hypoattenuation. Gallbladder and bile ducts: Prior cholecystectomy. Stomach and bowel: Colonic diverticulosis. Bones/joints: No acute fracture. Mild degenerative changes along the spine. Soft tissues: Unremarkable. CT/CT chest wo con [id number] IMPRESSION: 1. Intervally stable 11 x 6 mm right lower lobe pulmonary nodule. 2. Additional chronic and incidental findings as above, to include atherosclerosis, hepatic steatosis, and colonic diverticulosis. COMMENTS: In the absence of a history or active diagnosis of lung cancer, it is recommended that this patient with emphysema be evaluated for enrollment in a low dose CT lung cancer screening program.
== END 2023-04-28 11:00 | disposition home or self-care (01) ==
PROVIDERS: PCP Nurse Practitioner Family; Visit Provider Internal Medicine Pulmonary Disease
DX: R91.8 Other nonspecific abnormal finding of lung field (principal)
CPT/HCPCS: 71250

== ENCOUNTER → 2023-06-05 18:30 | Outpatient (BNVA) | payer BC, SELFPAY | PROVIDERS: PCP Nurse Practitioner Family; Visit Provider Emergency Medicine | DX: R39.9 Unspecified symptoms and signs involving the genitourinary system (principal); N39.0 Urinary tract infection, site not specified | CPT/HCPCS: 81000; 87077; 87086; 87184 ==

== ENCOUNTER → 2023-06-10 12:24 | Outpatient (BNVA) | payer BC, SELFPAY | PROVIDERS: PCP Nurse Practitioner Family; Visit Provider Nurse Practitioner Family | DX: R39.9 Unspecified symptoms and signs involving the genitourinary system (principal); E11.9 Type 2 diabetes mellitus without complications; E55.9 Vitamin D deficiency, unspecified | CPT/HCPCS: 80053; 80061; 81003; 82043; 82306; 83036; 83735; 84443; 85025; 87086 ==

== ENCOUNTER → 2023-08-05 09:30 | Outpatient (BNVA) | payer BC, SELFPAY | PROVIDERS: PCP Nurse Practitioner Family; Visit Provider Nurse Practitioner Family | DX: E11.9 Type 2 diabetes mellitus without complications (principal); Z01.818 Encounter for other preprocedural examination | CPT/HCPCS: 83036 ==

== ENCOUNTER 2023-10-07 13:58 | Outpatient (CLI) | payer BC, SELFPAY ==
--- NOTE | 2023-10-07 14:00 | CTR_ITS ---
PROCEDURE INFORMATION: Exam: CT Chest Without Contrast; Diagnostic Exam date and time: 10/07/2023 2:22 PM Age: 67 years old Clinical indication: Condition or disease; Lung condition and disease; Pulmonary nodule, solitary; Additional info: Repeat study TECHNIQUE: Imaging protocol: Diagnostic computed tomography of the chest without contrast. Radiation optimization: All CT scans at this facility use at least one of these dose optimization techniques: automated exposure control; mA and/or kV adjustment per patient size (includes targeted exams where dose is matched to clinical indication); or iterative reconstruction. REPORTING DATA: Count of CT and Cardiac NM exams in prior 12 months: This patient has received 2 known CTs and 0 known cardiac nuclear medicine studies in the 12 months prior to the current study. COMPARISON: 1. CT angio chest PE protcl [id number] 07/13/2020 6:[address] chest wo con [id number] 04/28/2023 11:[address] lung screening [id number] 04/08/2022 12:[address] chest wo con [id number] 08/05/2022 4:[address] chest wo con [id number] 01/26/2023 4:02 PM RADIATION DOSE METRICS: Total DLP (mGy-cm): 600.34 FINDINGS: Lungs: Mild chronic coarse reticular and ground-glass opacities in both upper lobes and superior segments of the lower lobes, stable since 04/08/2022 and markedly decreased since 07/13/2020. There is an irregular 11 mm nodule in the superior segment of the right lower lobe with surrounding reticular opacity. The nodule is unchanged since 04/08/2022 and has developed in a region of previously visible consolidation on 07/13/2020. Pleural spaces: There is no pleural effusion or pneumothorax. Heart: Heart size is normal. There is trace pericardial effusion. Coronary arteries: There is moderate coronary artery calcification. Lymph nodes: There is no mediastinal or hilar lymphadenopathy. Vasculature: There is mild aortic atherosclerotic disease. Liver: There is diffuse low-attenuation of the liver relative to the spleen consistent with fatty infiltration. Pancreas: There is moderate atrophy of the pancreas. Spleen: The spleen is mildly enlarged. Bones/joints: There are healing left anterior rib fractures. No acute fracture. Soft tissues: The extrathoracic soft tissues are unremarkable. CT/CT chest wo con [id number] IMPRESSION: 1. Stable 11 mm irregular pulmonary nodule in the right lower lobe since 04/08/2022. The nodule is new since 07/13/2020. At that time there was bilateral pulmonary predominant consolidation which has since resolved. The nodule probably represents a focus of chronic organizing pneumonia and/or scarring. A single additional follow-up noncontrast chest CT is recommended in 1 year. Subsequent follow-up may be discontinued if the nodule remains stable. (reference Iman) 2. Hepatic steatosis. 3. Mild splenic enlargement. 4. Minimal upper lung predominant reticular and ground-glass opacity, stable since 08/05/2022 and markedly decreased since 07/13/2020. This finding probably represents residua of a remote infectious or inflammatory process. 5. Incidental findings above. REFERENCES: Iman Ferrari, et al. Guidelines for Management of Incidental Pulmonary Nodules Detected on CT Images: From the Fleischner Society 2017. Radiology. 2017;284(1):228-243.
== END 2023-10-07 13:59 | disposition home or self-care (01) ==
LOC: RAD 13:58
PROVIDERS: PCP Nurse Practitioner Family; Visit Provider Internal Medicine Pulmonary Disease
DX: R91.1 Solitary pulmonary nodule (principal)
CPT/HCPCS: 71250

== ENCOUNTER 2023-11-10 06:00 | Outpatient (RCR) | payer BC, SELFPAY | END 2023-11-10 23:59 | disposition home or self-care (01) | LOC: TPT 06:00 | PROVIDERS: Visit Provider Orthopaedic Surgery | DX: Z47.1 Aftercare following joint replacement surgery (principal); Z96.651 Presence of right artificial knee joint | CPT/HCPCS: 97161 ==

== ENCOUNTER → 2023-12-15 15:10 | Outpatient (BNVA) | payer MEDICARE, BC, SELFPAY | PROVIDERS: Visit Provider Nurse Practitioner Family | DX: E11.9 Type 2 diabetes mellitus without complications (principal); E55.9 Vitamin D deficiency, unspecified; R30.0 Dysuria | CPT/HCPCS: 80053; 80061; 81003; 82306; 82607; 83036; 83735; 84443; 85025; 87086 ==

== ENCOUNTER → 2023-12-27 15:45 | Outpatient (BNVA) | payer MEDICARE, BC, SELFPAY | PROVIDERS: PCP Nurse Practitioner Family; Visit Provider Nurse Practitioner Family | DX: N39.0 Urinary tract infection, site not specified (principal) | CPT/HCPCS: 81000; 87086 ==

== ENCOUNTER 2023-12-28 06:00 | Outpatient (RCR) | payer MEDICARE, BC, SELFPAY | END 2024-01-09 23:59 | disposition home or self-care (01) | LOC: TPT 06:00 | PROVIDERS: PCP Nurse Practitioner Family; Visit Provider Nurse Practitioner Family | DX: M53.3 Sacrococcygeal disorders, not elsewhere classified (principal) | CPT/HCPCS: 97110; 97162 ==

== ENCOUNTER 2024-01-10 06:00 | Outpatient (RCR) | payer MEDICARE, BC, SELFPAY | END 2024-02-08 23:59 | disposition home or self-care (01) | LOC: TPT 06:00 | PROVIDERS: PCP Nurse Practitioner Family; Visit Provider Nurse Practitioner Family | DX: M53.3 Sacrococcygeal disorders, not elsewhere classified (principal) | CPT/HCPCS: 97110 ==

== ENCOUNTER → 2024-02-14 10:33 | Outpatient (BNVA) | payer MEDICARE, BC, SELFPAY | PROVIDERS: PCP Nurse Practitioner Family; Referring Provider Nurse Practitioner Family; Visit Provider Internal Medicine | DX: E78.2 Mixed hyperlipidemia; E11.22 Type 2 diabetes mellitus with diabetic chronic kidney disease; Z79.84 Long term (current) use of oral hypoglycemic drugs; N18.30 Chronic kidney disease, stage 3 unspecified; Z68.41 Body mass index [BMI] 40.0-44.9, adult | CPT/HCPCS: 99204 ==